=== PATIENT | female | born 1980 | race Two or more races ===

== ENCOUNTER 2020-02-09 10:03 | Outpatient (REF) | payer OTHER, SELFPAY ==
--- NOTE | 2020-02-09 10:08 | XR_ITS ---
EXAMINATION: XR LUMBOSACRAL SPINE CLINICAL INFORMATION: No back pain COMPARISON: None TECHNIQUE: Three views of the lumbosacral spine. FINDINGS: There is maintained lumbar lordosis. Loss of L5-S1 disc height is noted. Rest the disc heights, vertebral heights and alignment is normal. No visible acute fracture, dislocation or subluxation seen. The paravertebral soft tissues are normal. XR/XR lumbar spine 2-3V IMPRESSION: Degenerative disc changes L5-S1 disc level. No visible acute fracture or dislocation seen.
== END 2020-02-09 10:04 | disposition home or self-care (01) ==
LOC: HO.HMGCX 10:03
PROVIDERS: PCP Internal Medicine; Visit Provider Nurse Practitioner Family
DX: M54.5 Low back pain (principal)
CPT/HCPCS: 72100

== ENCOUNTER → 2020-04-12 14:58 | Outpatient (BNVA) | payer OTHER, SELFPAY | PROVIDERS: Visit Provider Internal Medicine Cardiovascular Disease | DX: I49.3 Ventricular premature depolarization (principal); R00.2 Palpitations | CPT/HCPCS: 93005; 99212 ==

== ENCOUNTER 2020-06-25 08:18 | Outpatient (REF) | payer OTHER, SELFPAY ==
[2020-06-25 08:43] LABS: COVID-19 Test Negative (Negative)
== END 2020-06-25 08:19 | disposition home or self-care (01) ==
LOC: HO.EMPCOV 08:18
PROVIDERS: Visit Provider Internal Medicine
DX: Z20.822 Contact with and (suspected) exposure to COVID-19 (principal)
CPT/HCPCS: 36415; 87635; C9803

== ENCOUNTER 2020-12-21 16:26 | Outpatient (REF) | payer OTHER, SELFPAY ==
--- NOTE | ~2020-12-21 | MM_ITS ---
EXAMINATION: MM SCREENING DIGITAL BREAST TOMOSYNTHESIS, BILATERAL CLINICAL INFORMATION: Screening. Asymptomatic. The lifetime risk of breast cancer based on the Tyrer-Cuzick Model is 8%. COMPARISON: Mammography: 08/12/2018, 05/10/2007. TECHNIQUE: Digital breast tomosynthesis is performed in both the craniocaudal and mediolateral oblique views along with computer-aided detection (CAD). Synthesized 2D images are generated from the tomosynthesis. FINDINGS: The breasts are heterogeneously dense, which may obscure small masses (ACR BI-RADS breast composition Category c). There are no significant masses, abnormal calcifications, or other abnormalities. Parenchymal pattern is similar to prior exam. The axilla and skin contours are unremarkable. MM/MM tomosynthesis screening BI IMPRESSION: No mammographic evidence of malignancy. ASSESSMENT: BI-RADS 1: Negative RECOMMENDATION: Routine annual mammography screening. This patient's information was entered into a reminder system with a target due date for their next mammogram.
== END 2020-12-21 16:27 | disposition home or self-care (01) ==
LOC: HO.MAMMO 16:26
PROVIDERS: Visit Provider Internal Medicine
DX: Z12.31 Encounter for screening mammogram for malignant neoplasm of breast (principal)
CPT/HCPCS: 77063; 77067

== ENCOUNTER 2021-01-13 13:33 | Outpatient (REF) | payer OTHER, SELFPAY ==
[2021-01-16 15:06] LABS: Anti Nuclear Antibody Screen NEGATIVE (NEGATIVE)
[2021-01-21 15:20] LABS: Vitamin D 25-OH, D2 <4 ng/mL; Vitamin D 25-OH, D3 20 ng/mL; Vitamin D 25-OH, Total 20 ng/mL (30-100)
== END 2021-01-13 13:34 | disposition home or self-care (01) ==
LOC: HO.LAB 13:33
PROVIDERS: PCP Internal Medicine; Visit Provider Internal Medicine
DX: E55.9 Vitamin D deficiency, unspecified (principal); M25.50 Pain in unspecified joint
CPT/HCPCS: 36415; 82306; 86038; 86039

== ENCOUNTER → 2021-02-02 15:18 | Outpatient (REF) | payer OTHER, SELFPAY ==
--- NOTE | 2021-02-02 15:27 | ECG_ITS ---
Test Reason : preop Blood Pressure : / mmHG Vent. Rate : 061 BPM Atrial Rate : 061 BPM P-R Int : 118 ms QRS Dur : 088 ms QT Int : 428 ms P-R-T Axes : 057 067 066 degrees QTc Int : 430 ms Normal sinus rhythm Nonspecific ST and T wave abnormality Borderline ECG No previous ECGs available Referred By: Gilda Valenzuela Electronically Signed By:DAVE BERRY
== END ==
LOC: HO.CARD 15:18
PROVIDERS: PCP Internal Medicine; Visit Provider Internal Medicine
DX: Z01.818 Encounter for other preprocedural examination (principal)
CPT/HCPCS: 93005

== ENCOUNTER 2021-02-03 08:44 | Outpatient (REF) | payer OTHER, SELFPAY ==
[2021-02-03 09:05] LABS: MANUAL DIFF FLAG NO
[2021-02-03 09:38] LABS: Basophils Percent Auto 0.5 % (0-2); Eosinophils Absolute Auto 0.2 X10*3/uL (0.0-0.4); Eosinophils Percent Auto 1.9 % (0-4); Hematocrit 40.8 % (37.0-47.0); Hemoglobin 13.7 g/dl (12.0-16.0); Imm Gran Abs Auto 0.02 X10*3/uL (0.00-0.03); Imm Gran Pct Auto 0.2 % (0.0-0.4); Lymphocytes Absolute Auto 2.2 X10*3/uL (1.2-4.9); Lymphocytes Percent Auto 26.1 % (20-40); Mean Corpuscular HGB Conc 33.6 g/dl (31.0-35.0); Mean Corpuscular Hemoglobin 29.5 pg (27.0-33.0); Mean Corpuscular Volume 87.9 fL (80.0-98.0); Mean Platelet Volume 10.6 fL (9.4-12.3); Monocytes Absolute Auto 0.5 X10*3/uL (0.1-1.2); Neutrophils Absolute Auto 5.6 x10*3/uL (2.0-8.3); Neutrophils Percent Auto 65.3 % (45-73); Platelet Count 275 X10*3/uL (160-400); Red Blood Count 4.64 X10*6/uL (4.20-5.50); Red Cell Distribution Width 12.3 % (11.0-16.0); White Blood Count 8.5 X10*3/uL (4.8-10.8)
[2021-02-03 10:00] LABS: Alanine Aminotransferase 15 U/L (0-31); Albumin Level 4.1 g/dL (3.5-5.0); Alkaline Phosphatase 66 U/L (39-117); Anion Gap 11 (12-20); Aspartate Amino Transferase 17 U/L (5-31); Bilirubin Total 1.1 mg/dL (0.0-1.0); Blood Urea Nitrogen 11 mg/dL (9-16); Calcium 9.2 mg/dL (8.4-10.2); Carbon Dioxide 28 mmol/L (22-29); Chloride 104 mmol/L (96-108); Estimated Glomerular Filt Rate > 60; Glucose Fasting 122 mg/dL (60-99); Potassium 4.1 mmol/L (3.3-5.1); Sodium 139 mmol/L (135-145); Total Protein 7.1 g/dL (6.5-8.0)
== END 2021-02-03 08:45 | disposition home or self-care (01) ==
LOC: HO.LAB 08:44
PROVIDERS: PCP Internal Medicine; Visit Provider Internal Medicine
DX: Z01.818 Encounter for other preprocedural examination (principal); D64.9 Anemia, unspecified
CPT/HCPCS: 36415; 80053; 85025

== ENCOUNTER 2021-02-04 08:27 | Outpatient (REF) | payer OTHER, SELFPAY ==
[2021-02-04 10:10] LABS: Estimated Average Glucose 103 mg/dL; Hemoglobin A1c % 5.2 %
[2021-02-04 10:31] LABS: Glucose Fasting 118 mg/dL (60-99)
== END 2021-02-04 08:28 | disposition home or self-care (01) ==
LOC: HO.LAB 08:27
PROVIDERS: PCP Internal Medicine; Visit Provider Urology
DX: M25.50 Pain in unspecified joint (principal)
CPT/HCPCS: 36415; 82947; 83036

== ENCOUNTER 2021-06-01 08:41 | Outpatient (REF) | payer OTHER, SELFPAY ==
[2021-06-01 10:46] LABS: Glucose Fasting 105 mg/dL (60-99)
== END 2021-06-01 08:42 | disposition home or self-care (01) ==
LOC: HO.10HDL 08:41
PROVIDERS: Visit Provider Internal Medicine
DX: R73.02 Impaired glucose tolerance (oral) (principal)
CPT/HCPCS: 36415; 82947

== ENCOUNTER → 2021-07-20 14:09 | Outpatient (BNVA) | payer OTHER, SELFPAY | PROVIDERS: PCP Internal Medicine; Visit Provider Urology | DX: R82.81 Pyuria (principal) ==

== ENCOUNTER 2021-08-09 14:11 | Outpatient (AMB) | payer OTHER, SELFPAY ==
--- NOTE | 2021-08-09 14:22 | A.OFFVIS_ITS ---
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 She is a patient of Dr. Valenzuela. She seen for the following urologic conditions - persistent pyuria completed low dose antibiotics based on microgen with multiple species Pyuria Found on prior urinary dipstick Urinary dipstick today shows leuk esterase 3+ blood, negative nitrite, trace glucose Has previously had occasional bladder spasm Plan on Microgen DNA test May benefit from 3 months of low-dose suppression based on Microgen result PFSH Medical History Bladder spasms Impaired glucose tolerance Physical exam Polyarthralgia Pre-op evaluation PVCs (premature ventricular contractions) Rash Surgical History H/O oral surgery History of History of lumpectomy of left breast Family History Mother Diabetes Pulmonary embolism Father Substance use disorder Social History Housing: House Alcohol intake: current Alcohol intake frequency: holidays/special occasions only Alcohol type: beer Patient Tobacco Use Status: Never used Tobacco e-Cigarette/Vaping Use: Never Used Second Hand Smoke Exposure: No service: No Current occupational status: employed Current occupational exposures/hazards: No Cognitive needs: No Hearing needs: No Vision needs: No Review of Systems Const Denies chills and Denies fever(s) Card Reports no additional complaints and Denies syncope Resp Denies cough GI Denies abdominal pain and Denies heartburn Reports as per HPI and Denies change in libido Neuro Denies syncope Psych Denies change in libido Endo Denies change in libido Physical Exam Const General: cooperative, healthy appearing, comfortable and no acute distress Orientation/consciousness: patient oriented x3 HEENT Face and sinus: Yes normal facial exam Mouth: moist mucous membranes Neck Neck: Yes normal visual inspection, Yes full ROM and Yes trachea midline Chest Chest palpation & inspection: normal inspection of the chest Resp Effort & Inspection: normal respiratory effort, able to speak in complete sentences and no respiratory distress GI Inspection: Yes normal to inspection Back/Spine/Pelvis Cervical Spine: normal cervical lordosis Thoracic/Lumbar Spine: thoracic and lumbar spine normal to inspection Skin General skin exam: no rashes or lesions noted Neuro General: patient oriented x3, gait normal, tone normal and moves all extremities Extrem General: Yes normal to inspection and Yes capillary refill normal Results AMB Urinalysis, Automated UA Leukoctes 0 [place]/uL Last Edit by Isai Almeida on 08/09/21 14:24 UA Nitrite Negative Last Edit by Isai Almeida on 08/09/21 14:24 UA Urobilinogen 0.2 mg/dL Last Edit by Isai Almeida on 08/09/21 14:24 UA Protein 0 mg/dL Last Edit by Isai Almeida on 08/09/21 14:24 UA pH 6.5 Last Edit by Isai Almeida on 08/09/21 14:24 UA Blood 0 Myke/uL Last Edit by Isai Almeida on 08/09/21 14:24 UA Specific [place] 1.015 Last Edit by Isai Almeida on 08/09/21 14:24 UA Ketone Negative Last Edit by Isai Almeida on 08/09/21 14:24 UA Bilirubin 0 mg/dL Last Edit by Isai Almeida on 08/09/21 14:24 UA Glucose 100 mg/dL Last Edit by Isai Almeida on 08/09/21 14:24 Results Reviewed Results Reviewed: Laboratory Last Values Urine pH (Auto) 6.5 08/09/21 14:23 Specific [place] (Auto) 1.015 08/09/21 14:23 Urine Protein (Auto) 0 mg/dL 08/09/21 14:23 Glucose (UA)(Auto) 100 mg/dL 08/09/21 14:23 Urine Ketones (Auto) Negative 08/09/21 14:23 Urine Blood (Auto) 0 Myke/uL 08/09/21 14:23 Urine Nitrite (Auto) Negative 08/09/21 14:23 Urine Bilirubin (Auto) 0 mg/dL 08/09/21 14:23 Urine Urobilinogen (Auto) 0.2 mg/dL 08/09/21 14:23 Leukocyte Esterase (Auto) 0 [place]/uL 08/09/21 14:23 Assessment & Plan Assessment & Plan (1) Chronic UTI (urinary tract infection): Code(s): N39.0 - Urinary tract infection, site not specified Plan will call if persistent Orders: Orders AMB Urinalysis Automated 08/09/21 Z13.9 - Encounter for screening, unspecified Patient Instructions: Imaging studies, laboratory and physical exam results were discussed and reviewed in detail. No major barriers to patient understanding were identified. An opportunity to ask questions regarding the treatment plan was provided. All questions were answered. The patient expressed understanding and agreement with the above treatment plan. The patient is aware they should contact our office by phone for worsening of their current condition or the appearance of new urologic symptoms. Compliance is encouraged with any medications and followup testing that is ordered. It is a privilege to participate in the urologic care of your patient. If you have any questions or concerns regarding treatment for the above conditions, or other urologic issues, please do not hesitate to contact me. The office telephone contact is [phone]. This note is constructed using voice recognition software. While every effort has been made to ensure accuracy medical staff services coordinator errors may have been included. Yours sincerely, Dr Arden Fuentes MD, [facility] - Urology Providers of Expert, Compassionate Care for the Genitourinary System Coding Level of Care Code Est Pt Level 3 (16889) Diagnoses Chronic UTI (urinary tract infection) N39.0
== END 2021-08-09 16:23 | disposition home or self-care (01) ==
LOC: HO.HUSH 14:11
PROVIDERS: PCP Internal Medicine; Visit Provider Urology
DX: N39.0 Urinary tract infection, site not specified (principal)
CPT/HCPCS: 99499

== ENCOUNTER → 2021-08-09 14:11 | Outpatient (BNVA) | payer OTHER, SELFPAY | PROVIDERS: PCP Internal Medicine; Visit Provider Urology | DX: Z13.89 Encounter for screening for other disorder (principal) ==

== ENCOUNTER 2021-09-26 08:45 | Outpatient (REF) | payer OTHER, SELFPAY ==
[2021-09-26 09:55] LABS: COVID-19 Test Negative (Negative)
== END 2021-09-26 08:46 | disposition home or self-care (01) ==
LOC: HO.LAB 08:45
PROVIDERS: Visit Provider Internal Medicine
DX: Z20.822 Contact with and (suspected) exposure to COVID-19 (principal)
CPT/HCPCS: 87635; C9803

== ENCOUNTER 2021-10-07 07:32 | Outpatient (REF) | payer OTHER, SELFPAY ==
[2021-10-07 09:12] LABS: Alanine Aminotransferase 14 U/L (0-31); Albumin Level 4.4 g/dL (3.5-5.0); Alkaline Phosphatase 63 U/L (39-117); Anion Gap 14 (12-20); Aspartate Amino Transferase 18 U/L (5-31); Bilirubin Total 0.8 mg/dL (0.0-1.0); Blood Urea Nitrogen 25 mg/dL (9-16); Calcium 9.4 mg/dL (8.4-10.2); Carbon Dioxide 27 mmol/L (22-29); Chloride 104 mmol/L (96-108); Cholesterol 216 mg/dL; Estimated Glomerular Filt Rate 56; Glucose Fasting 116 mg/dL (60-99); HDL Cholesterol 56 mg/dL; LDL Cholesterol Calculated 136 mg/dl; Potassium 4.7 mmol/L (3.3-5.1); Sodium 140 mmol/L (135-145); Total Protein 7.6 g/dL (6.5-8.0); Triglycerides 120 mg/dL
[2021-10-07 09:33] LABS: Vitamin D 25-OH Total 23.5 ng/mL (>30)
== END 2021-10-07 07:33 | disposition home or self-care (01) ==
LOC: HO.LAB 07:32
PROVIDERS: PCP Internal Medicine; Visit Provider Internal Medicine
DX: R73.02 Impaired glucose tolerance (oral) (principal); E55.9 Vitamin D deficiency, unspecified
CPT/HCPCS: 36415; 80053; 80061; 82306

== ENCOUNTER 2022-01-02 15:54 | Outpatient (REF) | payer OTHER, SELFPAY ==
--- NOTE | ~2022-01-02 | MM_ITS ---
EXAMINATION: MM SCREENING DIGITAL BREAST TOMOSYNTHESIS, BILATERAL CLINICAL INFORMATION: Screening. Asymptomatic. The lifetime risk of breast cancer based on the Tyrer-Cuzick Model is 8%. COMPARISON: Mammography: 12/21/2020, 08/12/2018 TECHNIQUE: Digital breast tomosynthesis is performed in both the craniocaudal and mediolateral oblique views along with computer-aided detection (CAD). Synthesized 2D images are generated from the tomosynthesis. FINDINGS: The breasts are heterogeneously dense, which may obscure small masses (ACR BI-RADS breast composition Category c). There are no significant masses, abnormal calcifications, or other abnormalities. No developing density or architectural abnormality. No significant changes. The axilla and skin contours are unremarkable. MM/MM tomosynthesis screening BI IMPRESSION: No mammographic evidence of malignancy. ASSESSMENT: BI-RADS 1: Negative RECOMMENDATION: Routine annual mammography screening. This patient's information was entered into a reminder system with a target due date for their next mammogram.
== END 2022-01-02 15:55 | disposition home or self-care (01) ==
LOC: HO.MAMMO 15:54
PROVIDERS: PCP Internal Medicine; Visit Provider Internal Medicine
DX: Z12.31 Encounter for screening mammogram for malignant neoplasm of breast (principal)
CPT/HCPCS: 77063; 77067

== ENCOUNTER 2022-01-16 08:27 | Outpatient (REF) | payer OTHER, SELFPAY ==
[2022-01-16 11:13] LABS: Alanine Aminotransferase 14 U/L (0-31); Alkaline Phosphatase 67 U/L (39-117); Anion Gap 15 (12-20); Aspartate Amino Transferase 17 U/L (5-31); Bilirubin Total 0.5 mg/dL (0.0-1.0); Blood Urea Nitrogen 15 mg/dL (9-16); Calcium 9.2 mg/dL (8.4-10.2); Carbon Dioxide 24 mmol/L (22-29); Chloride 105 mmol/L (96-108); Estimated Glomerular Filt Rate > 60; Glucose Fasting 112 mg/dL (60-99); Potassium 4.4 mmol/L (3.3-5.1); Sodium 140 mmol/L (135-145); Total Protein 7.1 g/dL (6.5-8.0)
[2022-01-17 10:21] LABS: Rubeola IgG (Measles) >300.00 AU/mL
[2022-01-17 11:57] LABS: Rubella IgG Antibody 1.71 Index
[2022-01-18 15:57] LABS: TS Negative Control Passed; TS Panel A 0; TS Panel B 0; TS Positive Control Passed; TSpotTB Negative (Negative)
== END 2022-01-16 08:28 | disposition home or self-care (01) ==
LOC: HO.10HDL 08:27
PROVIDERS: Visit Provider Internal Medicine
DX: Z01.84 Encounter for antibody response examination (principal); R73.02 Impaired glucose tolerance (oral); Z11.1 Encounter for screening for respiratory tuberculosis
CPT/HCPCS: 36415; 80053; 86481; 86735; 86762; 86765

== ENCOUNTER → 2022-03-27 14:54 | Outpatient (BNVA) | payer OTHER, SELFPAY | PROVIDERS: PCP Internal Medicine; Referring Provider Internal Medicine; Visit Provider Internal Medicine Cardiovascular Disease | DX: I49.3 Ventricular premature depolarization (principal) | CPT/HCPCS: 93005 ==

== ENCOUNTER 2022-04-26 11:00 | Outpatient (REF) | payer OTHER, SELFPAY ==
--- NOTE | ~2022-04-26 | XR_ITS ---
EXAMINATION: XR HAND, RIGHT CLINICAL INFORMATION: Right hand pain COMPARISON: None TECHNIQUE: PA, lateral, and oblique views of the right hand. FINDINGS: The bones and soft tissues are normal. No fracture. Alignment is anatomic. Joint spaces are maintained. No erosions or soft tissue calcifications. XR/XR hand RT 2V IMPRESSION: Normal right hand.
== END 2022-04-26 11:01 | disposition home or self-care (01) ==
LOC: HO.XRAY 11:00
PROVIDERS: PCP Internal Medicine; Visit Provider Internal Medicine
DX: M79.641 Pain in right hand (principal)
CPT/HCPCS: 73120

== ENCOUNTER 2022-05-26 16:29 | Outpatient (REF) | payer OTHER, SELFPAY ==
--- NOTE | ~2022-05-26 | XR_ITS ---
EXAMINATION: XR SHOULDER, RIGHT CLINICAL INFORMATION: Pain. COMPARISON: None available. TECHNIQUE: AP external rotation, Grashey, scapular Y, and axillary views of the right shoulder. FINDINGS: The bones and soft tissues are normal. No fracture. Glenohumeral and acromioclavicular alignment is anatomic with normal joint space. No abnormal soft tissue calcifications. XR/XR shoulder LT min 2V IMPRESSION: Normal right shoulder. EXAMINATION: XR SHOULDER, LEFT CLINICAL INFORMATION: Pain. COMPARISON: None available. TECHNIQUE: AP external rotation, Grashey, scapular Y, and axillary views of the left shoulder. FINDINGS: The bones and soft tissues are normal. No fracture. Glenohumeral and acromioclavicular alignment is anatomic with normal joint space. No abnormal soft tissue calcifications. IMPRESSION: Normal left shoulder.
--- NOTE | ~2022-05-26 | XR_ITS ---
EXAMINATION: XR CERVICAL SPINE CLINICAL INFORMATION: Cervicalgia. COMPARISON: Radiographs dated 10/12/2010. TECHNIQUE: Frontal, odontoid, bilateral oblique and lateral views of the cervical spine were obtained. FINDINGS: The vertebral alignment is normal. No intrinsic bony abnormality. The disc heights and neural foramina are well maintained. The endplates and posterior elements are normal. No fracture or subluxation. The surrounding prevertebral soft tissues are unremarkable. Small bilateral cervical ribs are redemonstrated. XR/XR cervical spine 5V IMPRESSION: Unremarkable examination.
--- NOTE | ~2022-05-26 | XR_ITS ---
EXAMINATION: XR SHOULDER, RIGHT CLINICAL INFORMATION: Pain. COMPARISON: None available. TECHNIQUE: AP external rotation, Grashey, scapular Y, and axillary views of the right shoulder. FINDINGS: The bones and soft tissues are normal. No fracture. Glenohumeral and acromioclavicular alignment is anatomic with normal joint space. No abnormal soft tissue calcifications. XR/XR shoulder RT min 2V IMPRESSION: Normal right shoulder. EXAMINATION: XR SHOULDER, LEFT CLINICAL INFORMATION: Pain. COMPARISON: None available. TECHNIQUE: AP external rotation, Grashey, scapular Y, and axillary views of the left shoulder. FINDINGS: The bones and soft tissues are normal. No fracture. Glenohumeral and acromioclavicular alignment is anatomic with normal joint space. No abnormal soft tissue calcifications. IMPRESSION: Normal left shoulder.
== END 2022-05-26 16:30 | disposition home or self-care (01) ==
LOC: HO.XRAY 16:29
PROVIDERS: Visit Provider Nurse Practitioner Adult Health
DX: M25.511 Pain in right shoulder (principal); M25.512 Pain in left shoulder; M54.2 Cervicalgia; M79.12 Myalgia of auxiliary muscles, head and neck
CPT/HCPCS: 72050; 73030

== ENCOUNTER 2022-10-09 09:01 | Outpatient (REF) | payer OTHER, SELFPAY ==
--- NOTE | ~2022-10-09 | MR_ITS ---
EXAMINATION: MR BRAIN WITHOUT CONTRAST CLINICAL INFORMATION: Headaches. COMPARISON: Prior brain MRI dated 04/06/2017. TECHNIQUE: Multiplanar, multisequence imaging of the brain was performed without contrast. FINDINGS: No diffusion abnormalities are identified to suggest an acute infarct. The ventricles are normal in size. No mass effect or midline shift is seen. Minimal nonspecific white matter signal changes are stable. No extra-axial fluid collections are seen. The brainstem is normal. There is a small chronic infarct again visible in the right inferolateral cerebellar hemisphere. The gradient refocused acquisition is normal. The craniovertebral junction, marrow signal, and midline structures are normal. The major intracranial flow voids at the level of the north fork of [place] are preserved. The dural venous sinus flow voids are maintained. The mastoid air cells are well aerated. There is moderate mucosal thickening in the anterolateral left sphenoid sinus. Mild mucosal thickening noted along the floors of the maxillary sinus cavities. Moderate bilateral ethmoid sinus disease present. There is additional mild mucosal thickening in both frontal sinus cavities. MR/MR head/brain wo con IMPRESSION: Stable minimal nonspecific scattered white matter signal changes. Small chronic right cerebellar infarct. No acute intracranial process. Moderate ethmoid and left sphenoid sinus mucosal disease with milder mucosal thickening elsewhere in the paranasal sinuses.
== END 2022-10-09 09:02 | disposition home or self-care (01) ==
LOC: HO.MRI 09:01
PROVIDERS: PCP Internal Medicine; Visit Provider Internal Medicine
DX: R51.9 Headache, unspecified (principal)
CPT/HCPCS: 70551

== ENCOUNTER 2023-06-04 10:07 | Outpatient (AMB) | payer BC, SELFPAY ==
[2023-06-04 10:10] VITALS: BP 112/70; PULSE 64; O2SAT 98; BMI 24.8
--- NOTE | 2023-06-04 10:10 | A.OFFVIS_ITS ---
Intake Vital Signs 06/04/23 10:10 Height 5 ft 3 in Weight 140 lb BMI 24.8 BP 112/70 Blood Pressure Location Rt brachial Position Sitting Pulse 64 Pulse Source Pulse Oximeter Pulse Oximetry (%) 98 Oxygen Delivery Method Room Air Intake Visit Reasons: [id number] Intake Note: Patient presents for headaches. Patient has migraines at least once a week. Allergies sumatriptan Allergy (Unknown, Verified 06/14/23 14:17) inadequate response SEASONAL ALLERGIES Allergy (Unknown, Uncoded 06/04/23 10:16) UNKNOWN Medication List - Last Reconciled 06/04/23 by Norma Mejia, JALEEL albuterol sulfate 90 mcg/actuation inhalation amoxicillin 500 mg PO BID 7 days cetirizine 10 mg PO DAILY nirmatrelvir-ritonavir 300 mg (150 mg x 2)-100 mg (Paxlovid) 3 ea PO PER PKG DIR 5 days pregabalin 150 mg PO TID propranolol ER 80 mg PO DAILY rizatriptan 10 mg PO Q2-4H PRN 30 days zolpidem 10 mg PO BEDTIME PRN HPI HPI Comments History of Present Illness Details Right-handed 42-yr-old female presents for new pt evaluation of headache disorder. Pt comes to establish care for her headaches, as her migraines are becoming more frequent. She has never seen neurology before. PMH is significant for: Anemia, arthritis, asthma, GERD, constipation, sleep problems, thyroid nodule. Sickle cell disease carrier without history of blood clot. Pertinent denials include: Denies history of seizures, hypertension, high cholesterol. Headache questionnaire: Previous work-up: 10/09/22, MR/MR head/brain wo con IMPRESSION: -Stable minimal nonspecific scattered wh ite matter signal changes. Small chronic right cerebellar infarct. No acute intracranial process. -Moderate ethmoid and left sphenoid sinu s mucosal disease with milder mucosal thickening elsewhere in the paranasal sinuses. Typical headache characteristics: Prodrome symptoms? none Aura? Left or right eye but then in both eyes. Sees a dot, transforms into a C shape, becomes zagged, and begins to move, and loses her bilateral peripheral vision. This usually lasts 20 minutes- if longer will be a/w a severe JO. This a/w nausea and sickness. When a/w headache the headache is more severe. The aura w/o the headache occurs once every other week or so. Pain intensity? Mod-Severe Location, quality, characteristics? Throbbing pain in crown of head. Stabbing pa in behind moses eyes. Associated symptoms? Photophobia, phonophobia, nausea, not right in space dizziness, difficulty concentrating, word finding difficulties, fatigue, , Focal weakness, Parethesias, Autonomic s/s? right or left watery eye- also has dry eye. Occasional slurred speech. Once (yrs ago)- right facial droop and numbness. Postdrome? Lingering symptoms. Triggers? Stress, skipping meals. Once on a plane- as it descended, caused a severe right sided headache. Any positional, valsalva, exertional, sexual activity triggers? Bending over exacerbates JO. Menstrual triggers? Has mild headaches a/w menses- menses is not regular. Time of day? No specific time of day Duration and Frequency? 1 attack per week, lasting 2 days. How does headache impact your life? Usually able to work through it- her office has a quite room. Rarely needs to leave work. 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 Lifestyle considerations: Sleep problems- Uses ambien for sleep- managed by [facility]. Denies snoring. Substance use: 1 cup of coffee in am, social alcohol Exercise: walks w/ her dogs daily. Current acute medication use/interventions: Rizatriptan w/ Ibuprofen- not always effective and makes her tiredness Current preventative medication use: Propranolol ER 80mg- used for PVCs. Non-pharmacological interventions: Applies heat. Does not tolerate cold tx. . Family history of migraine or other headache disorder? Mother [facility] Medical History (Updated 06/14/23 @ 15:02 by Gilda Valenzuela MD) Herpes zoster Bladder spasms Physical exam Rash Impaired glucose tolerance Pre-op evaluation Polyarthralgia PVCs (premature ventricular contractions) Surgical History H/O oral surgery History of lumpectomy of left breast History of Family History Mother Diabetes Pulmonary embolism Father Substance use disorder Social History Housing: House Alcohol intake: current Alcohol intake frequency: holidays/special occasions only Alcohol type: beer Patient Tobacco Use Status: Never used Tobacco e-Cigarette/Vaping Use: Never Used Second Hand Smoke Exposure: No service: No Current occupational status: employed Current occupational exposures/hazards: No Cognitive needs: No Hearing needs: No Vision needs: Yes Physical Exam Vital Signs: Last Vital Signs Pulse 64 06/04/23 10:10 BP 112/70 06/04/23 10:10 Pulse Ox 98 06/04/23 10:10 Oxygen Delivery Method Room Air 06/04/23 10:10 BMI result Body Mass Index 24.8 Const Orientation/consciousness: patient oriented x3 HEENT Other: No palpable scalp tenderness. Head: Yes normocephalic Resp Effort & Inspection: normal respiratory effort and able to speak in complete sentences Neuro General: patient oriented x3 Cranial nerves: Yes CN's II-XII intact bilaterally Cognition (Neuro): normal cognition Gait exam (Neuro): Normal gait present Motor exam (neuro): 5/5 motor strength present throughout Deep tendon reflexes (DTR's): Right triceps reflex intensity grade: 2+, Left triceps reflex intensity grade: 2+, Rt Biceps (C5, C6): 2+, Left biceps reflex intensity grade: 2+, Right brachioradialis reflex intensity grade: 2+, Left brachioradialis reflex intensity grade: 2+, Right patellar reflex intensity grade: 2+ and Left patellar reflex intensity grade: 2+ Coordination: [id number] test normal, tandem gait normal and Romberg test negative Pupils: Normal pupillary reactivity/response: bilateral Psych Appearance: grossly normal Mental Status: mental status grossly normal Speech and movement: Normal speech and movement present Affect: normal affect Attitude: cooperative Thought process: Normal thought process present Assessment & Plan Assessment & Plan (1) Cerebellar stroke: Comment: Right Code(s): I63.9 - Cerebral infarction, unspecified (2) Migraine with aura: Code(s): G43.109 - Migraine with aura, not intractable, without status migrainosus (3) Palpitations: Code(s): R00.2 - Palpitations (4) PVCs (premature ventricular contractions): Code(s): I49.3 - Ventricular premature depolarization (5) Sleep difficulties: Code(s): G47.9 - Sleep disorder, unspecified Plan For history of cerebellar infarcts seen on brain MRI: Start aspirin 81 mg q.h.s. Pt advised to undergo: HST to assess for sleep apnea. CTA head and neck. Lab workup for headache and for underlying etiology of h/o cerebellar infarct, as well as headache and fatigue s/s. For overall headache management: Optimize good self-care, including but not limited to maintaining a healthy diet, adequate fluid intake, adequate sleep, and engaging in regular physical activity. For headache triggers: Track headaches, especially after any treatment regimen changes. Migraine [employer] is one of many headache tracking apps. For acute headache treatment: Discussed importance of taking acute medications at the first sign of headache. Discontinue rizatriptan due to history of cerebellar infarct. Trial Nurtec ODT 75 mg q.d. p.r.n. Reviewed potential adverse effects of gepants, including but not limited to fatigue, nausea, dry mouth, constipation. Previous acute migraine medication trials: Rizatriptan w/ Ibuprofen- not always effective and makes her tiredness Acute migraine medication contraindications: All triptans due to history of cerebellar infarct For headache prevention medication: Discussed that preventative medications should be taken routinely as prescribed for best effect, it may take several weeks for full effect to take effect. Continue propranolol ER 80 mg q.d.- used for PVCs. Continue Pregabalin for fibromyaligia. Start Ajovy 225 mg subcu q.month. Reviewed potential adverse effects of Ajovy, including but not limited to injection site reactions. Previous migraine prevention medication trials: Amitriptyline- ineffective and caused GI upset. Gabapentin and Duloxetine- ineffective for JO or fibromyalgia- used for fibromyalgia. Migraine prevention medication contraindications: None at this time Pt to follow-up in 2-3 months or sooner prn. Orders: Orders RT home sleep study 06/04/23 I63.9 - Cerebral infarction, unspecified, I49.3 - Ventricular premature depolarization, R06.83 - Snoring, G47.9 - Sleep disorder, unspecified, R53.83 - Other fatigue Complete Blood Count Auto Diff 06/05/23 I63.9 - Cerebral infarction, unspecified, G43.109 - Migraine with aura, not intractable, without status migrainosus, R00.2 - Palpitations, I49.3 - Ventricular premature depolarization, R73.02 - Impaired glucose tolerance (oral), M25.50 - Pain in unspecified joint Erythrocyte Sedimentation Rate 06/05/23 I63.9 - Cerebral infarction, unspecified, G43.109 - Migraine with aura, not intractable, without status migrainosus, R00.2 - Palpitations, I49.3 - Ventricular premature depolarization, R73.02 - Impaired glucose tolerance (oral), M25.50 - Pain in unspecified joint TSH reflex Free T4 06/05/23 I63.9 - Cerebral infarction, unspecified, G43.109 - Migraine with aura, not intractable, without status migrainosus, R00.2 - Palpitations, I49.3 - Ventricular premature depolarization, R73.02 - Impaired glucose tolerance (oral), M25.50 - Pain in unspecified joint IRON PROFILE 06/05/23 I63.9 - Cerebral infarction, unspecified, G43.109 - Migraine with aura, not intractable, without status migrainosus, R00.2 - Palpitations, I49.3 - Ventricular premature depolarization, R73.02 - Impaired glucose tolerance (oral), M25.50 - Pain in unspecified joint GILDA Reflex Titer and Pattern 06/05/23 I63.9 - Cerebral infarction, unspecified, G43.109 - Migraine with aura, not intractable, without status migrainosus, R00.2 - Palpitations, I49.3 - Ventricular premature depolarization, R73.02 - Impaired glucose tolerance (oral), M25.50 - Pain in unspecified joint CT angio head neck 06/04/23 I63.9 - Cerebral infarction, unspecified, G43.109 - Migraine with aura, not intractable, without status migrainosus, R00.2 - Palpitations, I49.3 - Ventricular premature depolarization Comprehensive Met. Panel 06/05/23 I63.9 - Cerebral infarction, unspecified, G43.109 - Migraine with aura, not intractable, without status migrainosus, R00.2 - Palpitations, I49.3 - Ventricular premature depolarization, R73.02 - Impaired glucose tolerance (oral), M25.50 - Pain in unspecified joint CRP High Sensitivity 06/05/23 I63.9 - Cerebral infarction, unspecified, G43.109 - Migraine with aura, not intractable, without status migrainosus, R00.2 - Palpitations, I49.3 - Ventricular premature depolarization, R73.02 - Impaired glucose tolerance (oral), M25.50 - Pain in unspecified joint Hemoglobin A1c 06/05/23 I63.9 - Cerebral infarction, unspecified, G43.109 - Migraine with aura, not intractable, without status migrainosus, R00.2 - Palpitations, I49.3 - Ventricular premature depolarization, R73.02 - Impaired glucose tolerance (oral), M25.50 - Pain in unspecified joint Ferritin 06/05/23 I63.9 - Cerebral infarction, unspecified, G43.109 - Migraine with aura, not intractable, without status migrainosus, R00.2 - Palpitations, I49.3 - Ventricular premature depolarization, R73.02 - Impaired glucose tolerance (oral), M25.50 - Pain in unspecified joint Rheumatoid Factor 06/05/23 I63.9 - Cerebral infarction, unspecified, G43.109 - Migraine with aura, not intractable, without status migrainosus, R00.2 - Palpitations, I49.3 - Ventricular premature depolarization, R73.02 - Impaired glucose tolerance (oral), M25.50 - Pain in unspecified joint Methylmalonic Acid 06/05/23 I63.9 - Cerebral infarction, unspecified, G43.109 - Migraine with aura, not intractable, without status migrainosus, R00.2 - Palpitations, I49.3 - Ventricular premature depolarization, R73.02 - Impaired glucose tolerance (oral), M25.50 - Pain in unspecified joint Medications: New fremanezumab-vfrm (Ajovy) administer 225mg sc q month 225 mg (1.5 mL) subcut ONCE 1.5 mL 6RF 30 days rimegepant (Nurtec ODT) 75 mg PO ONCE PRN 16 tabs 3RF migraine headache 30 days MDD 1 tab aspirin bedtime 81 mg PO DAILY 30 tabs 6RF 30 days Coding Level of Care Code New Pt Level 4 (29497) Diagnoses Cerebellar stroke I63.9 Migraine with aura G43.109 Palpitations R00.2 PVCs (premature ventricular contractions) I49.3 Sleep difficulties G47.9
== END 2023-06-04 11:26 | disposition home or self-care (01) ==
PROVIDERS: PCP Internal Medicine; Referring Provider Internal Medicine; Visit Provider Nurse Practitioner Family
DX: I69.398 Other sequelae of cerebral infarction (principal); G43.109 Migraine with aura, not intractable, without status migrainosus; R00.2 Palpitations; I49.3 Ventricular premature depolarization; G47.9 Sleep disorder, unspecified
CPT/HCPCS: 99204

== ENCOUNTER → 2023-06-04 10:07 | Outpatient (BNVA) | payer BC, SELFPAY | PROVIDERS: PCP Internal Medicine; Visit Provider Nurse Practitioner Family ==

== ENCOUNTER 2023-06-05 07:58 | Outpatient (REF) | payer BC, SELFPAY ==
[2023-06-05 08:44] LABS: Imm Gran Abs Auto 0.01 X10*3/uL (0.00-0.03); Imm Gran Pct Auto 0.2 % (0.0-0.4); Monocytes Absolute Auto 0.4 X10*3/uL (0.1-1.2)
[2023-06-05 08:46] LABS: Basophils Percent Auto 0.5 % (0-2); Eosinophils Absolute Auto 0.3 X10*3/uL (0.0-0.4); Eosinophils Percent Auto 4.2 % (0-4); Hematocrit 42.9 % (37.0-47.0); Hemoglobin 14.4 g/dl (12.0-16.0); Lymphocytes Percent Auto 32.6 % (20-40); Mean Corpuscular HGB Conc 33.6 g/dl (31.0-35.0); Mean Corpuscular Hemoglobin 29.7 pg (27.0-33.0); Mean Corpuscular Volume 88.5 fL (80.0-98.0); Mean Platelet Volume 11.5 fL (9.4-12.3); Monocytes Percent Auto 6.7 % (2-11); Neutrophils Absolute Auto 3.5 x10*3/uL (2.0-8.3); Neutrophils Percent Auto 55.8 % (45-73); Platelet Count 243 X10*3/uL (160-400); Red Blood Count 4.85 X10*6/uL (4.20-5.50); Red Cell Distribution Width 12.6 % (11.0-16.0); White Blood Count 6.3 X10*3/uL (4.8-10.8)
[2023-06-05 08:49] LABS: Estimated Average Glucose 103 mg/dL; Hemoglobin A1c % 5.2 % (<6.0)
[2023-06-05 09:06] LABS: Rheumatoid Factor < 13.0 IU/mL (<15.0)
[2023-06-05 09:13] LABS: Erythrocyte Sedimentation Rate 2 MM/HR (0-20)
[2023-06-05 09:17] LABS: Alanine Aminotransferase 13 U/L (0-31); Alkaline Phosphatase 62 U/L (39-117); Anion Gap 10 (12-20); Aspartate Amino Transferase 17 U/L (5-31); Bilirubin Total 0.6 mg/dL (0.0-1.0); Blood Urea Nitrogen 9 mg/dL (9-16); Calcium 9.2 mg/dL (8.4-10.2); Carbon Dioxide 28 mmol/L (22-29); Chloride 108 mmol/L (96-108); Estimated Glomerular Filt Rate > 60; Glucose Random 130 mg/dL (60-115); Iron 101 mcg/dL (30-160); Percent Iron Saturation 39 % (15-50); Potassium 4.3 mmol/L (3.3-5.1); Sodium 142 mmol/L (135-145); Total Iron Binding Capacity 260 mcg/dL (228-428); Total Protein 7.3 g/dL (6.5-8.0); Unsaturated Iron Binding 159 ug/dL
[2023-06-05 09:39] LABS: TSH reflex Free T4 0.71 uIU/mL (0.32-4.0)
[2023-06-05 10:35] LABS: Ferritin 55 ng/mL (10-250)
[2023-06-06 17:29] LABS: CRP High Sensitivity 0.9 mg/L
[2023-06-07 12:53] LABS: Anti Nuclear Antibody Screen NEGATIVE (NEGATIVE)
[2023-06-09 08:28] LABS: Methylmalonic Acid 127 nmol/L (87-318)
== END 2023-06-05 07:59 | disposition home or self-care (01) ==
LOC: HO.LAB 07:58
PROVIDERS: PCP Internal Medicine; Visit Provider Nurse Practitioner Family
DX: I63.9 Cerebral infarction, unspecified (principal); G43.109 Migraine with aura, not intractable, without status migrainosus; R00.2 Palpitations; I49.3 Ventricular premature depolarization; R73.02 Impaired glucose tolerance (oral); M25.50 Pain in unspecified joint
CPT/HCPCS: 36415; 80053; 82728; 83036; 83540; 83921; 84443; 85025; 85652; 86038; 86141; 86431

== ENCOUNTER 2023-06-14 14:09 | Outpatient (AMB) | payer BC, SELFPAY ==
[2023-06-14 14:16] VITALS: BP 112/80; BMI 25.2
--- NOTE | 2023-06-14 14:16 | MHC.PC.OV ---
Vital Signs 06/14/23 14:16 Height 5 ft 3 in Weight 142 lb BMI 25.2 BP 112/80 Blood Pressure Location Lt brachial Position Sitting Intake Visit Reasons: pe Intake Note: Patient here for a physical exam Department Director Required: No Accompanied by: Self / Same As Patient Allergies sumatriptan Allergy (Unknown, Verified 06/14/23 14:17) inadequate response SEASONAL ALLERGIES Allergy (Unknown, Uncoded 06/04/23 10:16) UNKNOWN Medication List - Last Reconciled 06/14/23 by Gilda Valenzuela MD albuterol sulfate 90 mcg/actuation inhalation aspirin 81 mg PO DAILY 30 days cetirizine 10 mg PO DAILY fremanezumab-vfrm (Ajovy) 225 mg (1.5 mL) subcut ONCE 30 days pregabalin 150 mg PO TID propranolol ER 80 mg PO DAILY rimegepant (Nurtec ODT) 75 mg PO ONCE PRN 30 days MDD 1 tab zolpidem 10 mg PO BEDTIME PRN Tobacco use date assessed: 06/14/23 Dental Screening Dental Screen Date: 06/14/23 Did you have a dental visit in the last 12 months?: No Did you have a dental problem in the last 6 months where you did not have access to dental care?: No Was dental information given to patient?: Patient has dentist HPI HPI Comments History of Present Illness Details This is a 42-year-old female with mild cerebellar stroke with no residual deficit that comes for her physical exam. No acute complaints. Last mammogram was 2021. Last Pap smear was 2017. No chest pain or shortness of breath. On aspirin for secondary prophylaxis of stroke. Follows with Neurology. [facility] Medical History (Updated 06/14/23 @ 15:02 by Gilda Valenzuela MD) Herpes zoster Bladder spasms Physical exam Rash Impaired glucose tolerance Pre-op evaluation Polyarthralgia PVCs (premature ventricular contractions) Surgical History H/O oral surgery History of lumpectomy of left breast History of Family History Mother Diabetes Pulmonary embolism Father Substance use disorder Social History Housing: House Alcohol intake: current Alcohol intake frequency: holidays/special occasions only Alcohol type: beer Patient Tobacco Use Status: Never used Tobacco e-Cigarette/Vaping Use: Never Used Second Hand Smoke Exposure: No service: No Current occupational status: employed Current occupational exposures/hazards: No Cognitive needs: No Hearing needs: No Vision needs: Yes Questionnaire PHQ-9 Over the last 2 weeks, how often have you been bothered by any of the following problems? 1. Little interest or pleasure in doing things: not at all 2. Feeling down, depressed, or hopeless: not at all 3. Trouble falling or staying asleep, or sleeping too much: not at all 4. Feeling tired or having little energy: not at all 5. Poor appetite or overeating: not at all 6. Feeling bad about yourself - or that you are a failure or have let yourself or your family down: not at all 7. Trouble concentrating on things, such as reading the newspaper or watching television: not at all 8. Moving or speaking so slowly that other people could have noticed. Or the opposite - being so fidgety or restless that you have been moving around a lot more than usual: not at all 9. Thoughts that you would be better off or of hurting yourself in some way: not at all Total score: 0 Depression Screening Interpretation: Negative Depression Screening Done: Yes 20550 - PHQ-9 Billing: Yes Source: Developed by Drs. Greg Lazo, Celi Pickard, Jason Liu and colleagues, with an educational juan from [employer]. Thrive Questionnaire Date Thrive assessed: 06/14/23 I am a: Patient What is your living situation today?: I have a steady place to live Within the past 12 months, did the food you bought not last and you didn't have the money to get more?: Never true Within the past 12 months, did you worry whether your food would run out before you got money to buy more?: Never true Do you have trouble paying for medicines?: No Do you have trouble getting transportation to medical appointments?: No Do you have trouble paying your heating and electricity bill?: No Do you have trouble taking care of your child, family member or friend?: No Do you have trouble with day-to-day activities such as bathing, preparing meals, shopping, managing finances, etc.?: No Are you currently unemployed and looking for a job?: No Are you interested in more education?: No Please select the resources that you would like help with: None Currently or been in a relationship where the following occur: no concerns reported THRIVE Score: 0 AUDIT C Alcohol Use Questionnaire (AUDIT-C) 1. How often do you have a drink containing alcohol?: Monthly or less 2. How many drinks containing alcohol do you have on a typical day when you are drinking?: 1 or 2 3. How often do you have six or more drinks on one occasion?: Never Total Score: 1 MARÍA-7 AMB Questionnaire MARÍA-7 Date MARÍA - 7 assessed: 06/14/23 Feeling nervous, anxious, or on edge: 0 = Not at all Not being able to stop or control worryin = Not at all Worrying too much about different things: 0 = Not at all Trouble relaxin = Not at all Being so restless that it is hard to sit still: 0 = Not at all Becoming easily annoyed or irritable: 0 = Not at all Feeling afraid as if something awful might happen: 0 = Not at all Total MARÍA-7 score (0-4 normal; 5-9 mild; 10-14 moderate; 15-21 severe): 0 Source: Developed by Drs. Greg Lazo, Celi Pickard, Jason Liu and colleagues, with an educational juan from [employer]. MARÍA-7 Assessment Billing MARÍA-7 Assessment Tool: MARAÍ-7 Assessment 46816 Review of Systems Const All systems reviewed & are unremarkable except as noted in HPI and below Eyes Reports no additional complaints, Denies change in vision and Denies other visual disturbances Card Denies chest pain at rest, Denies chest pain with activity, Denies edema, Denies irregular heart rhythm, Denies claudication, Denies dyspnea, Denies dyspnea on exertion, Denies orthopnea, Denies paroxysmal nocturnal dyspnea and Denies slow heart rate Resp Denies cough, Denies dyspnea and Denies dyspnea on exertion GI Denies abdominal pain, Denies change in bowel habits, Denies excessive flatus, Denies nausea and Denies vomiting Neuro Denies lack of coordination Physical exam (Primary Care) Vital Signs: Last Vital Signs BP 112/80 06/14/23 14:16 BMI result Body Mass Index 25.2 Tobacco/Smoking Status: Tobacco use Status Tobacco use date assessed 06/14/23 06/14/23 14:24 Patient Tobacco Use Status Never used Tobacco 06/14/23 14:24 e-Cigarette/Vaping Use Never Used 06/14/23 14:24 PHQ-9: PHQ-9 Score PHQ-9: Total score 0 06/14/23 14:24 Depression Screening Interpretation: Negative Thrive Assessment: Date of Thrive Assessment Date Thrive assessed 06/14/23 06/14/23 14:24 Currently or been in a relationship where the following occur: no concerns reported Const Orientation/consciousness: patient oriented x3 HENMT Head: Yes normal to inspection, Yes normocephalic and Yes atraumatic Ears: external ears normal Eyes General: appearance normal, both eyes and all related structures Eyelids: Yes eyelids normal Conjunctivae: conjunctivae normal Neck Neck: Yes normal visual inspection and Yes supple Resp Effort & Inspection: normal respiratory effort Auscultation: clear to auscultation bilaterally Cardio Jugular venous distension: no JVD Rate: regular rate Rhythm: regular rhythm Heart sounds: S1 normal heart sound present and S2 normal heart sound present GI Inspection: Yes normal to inspection Palpation (GI): Soft to palpation and nontender Auscultation: normal bowel sounds Skin General skin exam: no rashes or lesions noted Neuro General: patient oriented x3 and no focal motor deficits Extrem General: Yes full ROM Psych Appearance: grossly normal Assessment and Plan Assessment & Plan (1) Physical exam: Code(s): Z00.00 - Encounter for general adult medical examination without abnormal findings Plan: Repeat in a year. (2) Cerebellar stroke: Comment: Right Code(s): I63.9 - Cerebral infarction, unspecified Plan: Continue aspirin for secondary prophylaxis. Follow-up with Neurology. Orders: Orders MM screening mammo BI Today I63.9 - Cerebral infarction, unspecified, Z12.31 - Encounter for screening mammogram for malignant neoplasm of breast Lipid Panel Today E78.5 - Hyperlipidemia, unspecified, I63.9 - Cerebral infarction, unspecified Referrals WILDLIFE PHOTOGRAPHER Referral Z12.4 - Encounter for screening for malignant neoplasm of cervix Coding Level of Care Code Est Pt Prev Care 40-64y(89697) Diagnoses Physical exam Z00.00 Cerebellar stroke I63.9 Additional Codes MARÍA-7 Assessment Billing - MARÍA-7 Assessment Tool: MARÍA-7 Assessment [id number] ([id number]) Time Spent (min) 31
== END 2023-06-14 15:06 | disposition home or self-care (01) ==
PROVIDERS: Visit Provider Internal Medicine
DX: Z00.00 Encounter for general adult medical examination without abnormal findings (principal); I63.9 Cerebral infarction, unspecified
CPT/HCPCS: 99396

== ENCOUNTER 2023-07-16 13:26 | Outpatient (REF) | payer BC, SELFPAY ==
--- NOTE | ~2023-07-16 | MM_ITS ---
EXAMINATION: MM SCREENING DIGITAL BREAST TOMOSYNTHESIS, BILATERAL CLINICAL INFORMATION: Screening. Asymptomatic. The patient reports a history of prior left breast benign excisional biopsy. COMPARISON: Mammography: This study is compared with prior exams dating back to 2019. TECHNIQUE: Digital breast tomosynthesis is performed in both the craniocaudal and mediolateral oblique views along with computer-aided detection (CAD). Synthesized 2D images are generated from the tomosynthesis. FINDINGS: The breasts are heterogeneously dense, which may obscure small masses (ACR BI-RADS breast composition Category c). There are no significant masses, abnormal calcifications, or other abnormalities. MM/MM tomosynthesis screening BI IMPRESSION: No mammographic evidence of malignancy. ASSESSMENT: BI-RADS BI-RADS 1 - Negative RECOMMENDATION: Routine annual mammography screening. 1 year F/U This examination should not preclude the clinical evaluation of a suspicious palpable abnormality. This patient's information was entered into a reminder system with a target due date for their next mammogram.
== END 2023-07-16 13:27 | disposition home or self-care (01) ==
LOC: HO.MAMMO 13:26
PROVIDERS: PCP Internal Medicine; Visit Provider Internal Medicine
DX: Z12.31 Encounter for screening mammogram for malignant neoplasm of breast (principal)
CPT/HCPCS: 77063; 77067

== ENCOUNTER → 2023-07-16 13:30 | Outpatient (BNV) | payer BC, SELFPAY | PROVIDERS: PCP Internal Medicine; Visit Provider Radiology Diagnostic Radiology | DX: Z12.31 Encounter for screening mammogram for malignant neoplasm of breast (principal) | CPT/HCPCS: 77063; 77067 ==

== ENCOUNTER 2023-07-17 07:28 | Outpatient (AMB) | payer BC, SELFPAY ==
--- NOTE | 2023-07-17 07:35 | A.OFFVIS_ITS ---
Vital Signs 07/17/23 07:36 Height 5 ft 3 in Weight 142 lb BMI 25.2 BP 110/72 Blood Pressure Location Rt brachial Position Sitting Pulse 66 Pulse Source Pulse Oximeter Pulse Oximetry (%) 99 Oxygen Delivery Method Room Air Intake Visit Reasons: Follow up HEADACHES-LVM Intake Note: Patient presents for follow up headaches. Patient still getting the headaches had to call out because of headaches. Allergies sumatriptan Allergy (Unknown, Verified 07/17/23 07:40) inadequate response SEASONAL ALLERGIES Allergy (Unknown, Uncoded 07/17/23 07:40) UNKNOWN Medication List - Last Reconciled 07/17/23 by Norma Mejia, JALEEL albuterol sulfate 90 mcg/actuation inhalation aspirin 81 mg PO DAILY 30 days oorwstshnb-jfhhuuxxqjxmg-olxa 50-325-40 mg 1 cap PO Q4H PRN 30 days cetirizine 10 mg PO DAILY fremanezumab-vfrm (Ajovy) 225 mg (1.5 mL) subcut ONCE 30 days pregabalin 150 mg PO TID propranolol ER 80 mg PO DAILY rimegepant (Nurtec ODT) 75 mg PO ONCE PRN 30 days MDD 1 tab zolpidem 10 mg PO BEDTIME PRN HPI Comments Details: 42-yr-old female presents for f/u visit. Pt denies any significant interval medical changes. Pt had an episode in [place], where she had tunnel, vision, dizziness, flushed- like she would pass out. She continues to have bothersome migraine- 1 attack per week lasting 2 days. Has stopped her Rizatriptan. Ibuprofen ineffective. Has not started Ajovy and Nurtec yet- insurance PA pending. Labs were WNL, although Ferritin 55 normal, however pt has s/s of RLS, so lower than goal of 75. She is scheduled for HST next week. She has not heard about head/neck CYA yet. Baseline headache characteristics: Prodrome symptoms: none Aura: Left or right eye but then in both eyes. Sees a dot, transforms into a C shape, becomes zagged, and begins to move, and loses her bilateral peripheral vision. This usually lasts 20 minutes- if longer will be a/w a severe JO. This a/w nausea and sickness. When a/w headache the headache is more severe. The aura w/o the headache occurs once every other week or so. Headache: Mod-Severe Throbbing pain in crown of head. Stabbing pain behind moses eyes. A/w Photophobia, phonophobia, nausea, not right in space dizziness, difficulty concentrating, word finding difficulties, fatigue, right or left watery eye- also has dry eye. Occasional slurred speech. Once (yrs ago)- right facial droop and numbness. Postdrome: Lingering symptoms. [facility] Medical History (Updated 06/14/23 @ 15:02 by Gilda Valenzuela MD) Herpes zoster Bladder spasms Physical exam Rash Impaired glucose tolerance Pre-op evaluation Polyarthralgia PVCs (premature ventricular contractions) Surgical History H/O oral surgery History of lumpectomy of left breast History of Family History Mother Diabetes Pulmonary embolism Father Substance use disorder Social History Housing: House Alcohol intake: current Alcohol intake frequency: holidays/special occasions only Alcohol type: beer Patient Tobacco Use Status: Never used Tobacco e-Cigarette/Vaping Use: Never Used Second Hand Smoke Exposure: No service: No Current occupational status: employed Current occupational exposures/hazards: No Cognitive needs: No Hearing needs: No Vision needs: Yes Physical Exam Vital Signs: Last Vital Signs Pulse 66 07/17/23 07:36 BP 110/72 07/17/23 07:36 Pulse Ox 99 07/17/23 07:36 Oxygen Delivery Method Room Air 07/17/23 07:36 BMI result Body Mass Index 25.2 Const General: cooperative and no acute distress Orientation/consciousness: patient oriented x3 Resp Effort & Inspection: normal respiratory effort and able to speak in complete sentences Neuro General: patient oriented x3 Cranial nerves: Yes CN's II-XII intact bilaterally Cognition (Neuro): normal cognition Psych Appearance: grossly normal Mental Status: mental status grossly normal Speech and movement: Normal speech and movement present Affect: normal affect Attitude: cooperative Assessment & Plan Assessment & Plan (1) Migraines: Code(s): G43.909 - Migraine, unspecified, not intractable, without status migrainosus Category: Medical (2) Migraine with aura: Code(s): G43.109 - Migraine with aura, not intractable, without status migrainosus Category: Medical (3) Cerebellar stroke: Comment: Right Code(s): I63.9 - Cerebral infarction, unspecified Category: Medical (4) Snoring: Code(s): R06.83 - Snoring Category: Medical (5) Sleep difficulties: Code(s): G47.9 - Sleep disorder, unspecified Category: Medical (6) Fatigue: Code(s): R53.83 - Other fatigue Category: Medical Plan For history of cerebellar infarcts seen on brain MRI: Continue aspirin 81 mg q.h.s. Pt advised to undergo: HST to assess for sleep apnea. Will f/u on order for CTA head and neck. Reviewed labs- Ferritin 55- advised to try OTC ferrous sulfate w/ vit C qod- will recheck ferritin at f/u. For overall headache management: Optimize good self-care, including but not limited to maintaining a healthy diet, adequate fluid intake, adequate sleep, and engaging in regular physical a ctivity. For headache triggers: Track headaches, especially after any treatment regimen changes. Migraine [employer] is one of many headache tracking apps. For acute headache treatment: Discussed importance of taking acute medications at the first sign of headache. Discontinue rizatriptan due to history of cerebellar infarct. Trial Nurtec ODT 75 mg q.d. p.r.n.- will f/u on PA status. Until Nuretc available may trial Fioricet prn- advised not to take w/in 5 days of Nurtec. Reviewed potential adverse effects of gepants, including but not limited to fatigue, nausea, dry mouth, constipation. Previous acute migraine medication trials: Rizatriptan w/ Ibuprofen- not always effective and makes her tiredness Acute migraine medication contraindications: All triptans due to history of cerebellar infarct For headache prevention medication: Discussed that preventative medications should be taken routinely as prescribed for best effect, it may take several weeks for full effect to take effect. Continue propranolol ER 80 mg q.d.- used for PVCs. Monitro episodes of lightheadedness. Increase fluids. Continue Pregabalin for fibromyaligia. Start Ajovy 225 mg subcu q.month. Reviewed potential adverse effects of Ajovy, including but not limited to injection site reactions. Previous migraine prevention medication trials: Amitriptyline- ineffective and caused GI upset. Gabapentin and Duloxetine- ineffective for JO or fibromyalgia- used for fibromyalgia. Migraine prevention medication contraindications: None at this time Follow-up upon review of above and f/u in clinic in 6 months or sooner prn. Medications: New jiusactutk-ygajgjojznveq-niao 50-325-40 mg 1 cap PO Q4H 30 days PRN 20 caps 0RF pain Coding Level of Care Code Est Pt Level 4 (50945) Diagnoses Migraines G43.909 Migraine with aura G43.109 Cerebellar stroke I63.9 Snoring R06.83 Sleep difficulties G47.9 Fatigue R53.83
[2023-07-17 07:36] VITALS: BP 110/72; PULSE 66; O2SAT 99; BMI 25.2
== END 2023-07-17 08:09 | disposition home or self-care (01) ==
PROVIDERS: PCP Internal Medicine; Visit Provider Nurse Practitioner Family
DX: G43.E01 Chronic migraine with aura, not intractable, with status migrainosus (principal); I69.398 Other sequelae of cerebral infarction; R06.83 Snoring; G47.9 Sleep disorder, unspecified; R53.83 Other fatigue
CPT/HCPCS: 99214

== ENCOUNTER → 2023-07-17 07:28 | Outpatient (BNVA) | payer BC, SELFPAY | PROVIDERS: PCP Internal Medicine; Visit Provider Nurse Practitioner Family ==

== ENCOUNTER → 2023-07-25 14:54 | Outpatient (REF) | payer BC, SELFPAY | LOC: HO.SL 14:54 | PROVIDERS: PCP Internal Medicine; Visit Provider Nurse Practitioner Family | DX: Z13.89 Encounter for screening for other disorder (principal) ==

== ENCOUNTER 2023-08-21 12:47 | Outpatient (AMB) | payer BC, SELFPAY ==
[2023-08-21 12:49] VITALS: BP 116/68; BMI 25.2
--- NOTE | 2023-08-21 12:49 | MHC.OFFVIS ---
Vital Signs 08/21/23 12:49 Height 5 ft 3 in Weight 142 lb BMI 25.2 BP 116/68 Blood Pressure Location Lt brachial Position Sitting Intake Visit Reasons: [employer]PAR[employer] annual exam/referral Allergies sumatriptan Allergy (Unknown, Verified 08/21/23 12:51) inadequate response SEASONAL ALLERGIES Allergy (Unknown, Uncoded 08/21/23 12:51) UNKNOWN Is last menstrual period known: Yes Last menstrual period: 08/18/23 HPI Comments Details: Presenting for annual exam. No complaints. Last Pap/HPV was negative in 04/22 Last Mammogram was BI-RADS 1 in 07/26 [facility] Medical History Herpes zoster Bladder spasms Physical exam Rash Impaired glucose tolerance Pre-op evaluation Polyarthralgia PVCs (premature ventricular contractions) Surgical History H/O oral surgery History of lumpectomy of left breast History of Family History Mother Diabetes Pulmonary embolism Father Substance use disorder Social History Housing: House Alcohol intake: current Alcohol intake frequency: holidays/special occasions only Alcohol type: beer Patient Tobacco Use Status: Never used Tobacco e-Cigarette/Vaping Use: Never Used Second Hand Smoke Exposure: No service: No Current occupational status: employed Current occupational exposures/hazards: No Cognitive needs: No Hearing needs: No Vision needs: Yes Female Reproductive History Menstrual Duration of menses: <3 days Date of last menstrual period: 08/18/23 control method: none Total pregnancies: 1 Full term: 1 Date of last pap smear: 04/12/17 Date of Mammogram: 07/16/23 Review of Systems Const All systems reviewed & are unremarkable except as noted in HPI and below Card Reports as per HPI Resp Reports as per HPI GI Reports as per HPI and Reports no additional complaints Reports as per HPI Physical Exam Vital Signs: Last Vital Signs BP 116/68 08/21/23 12:49 BMI result Body Mass Index 25.2 Const General: cooperative, healthy appearing and comfortable Chest Chest palpation & inspection: normal inspection of the chest and normal palpation of entire chest wall Breast/axilla inspection: normal inspection of the breasts and normal inspection of the axillae Breast/axilla palpation: normal palpation of the breasts, normal palpation of the axillae and no axillary lymphadenopathy Resp Effort & Inspection: normal respiratory effort Auscultation: clear to auscultation bilaterally Percussion: percussion normal Cardio Palpation: normal PMI Rate: regular rate Rhythm: regular rhythm Heart sounds: no murmurs and no rubs Peripheral pulses: Peripheral pulses 2+ throughout GI Inspection: Yes normal to inspection Palpation (GI): Soft to palpation, nontender, no guarding, not rigid and No hepatosplenomegaly present Percussion: Yes normal to percussion Auscultation: normal bowel sounds Rectal Exam - Female: deferred General: Yes bladder normal to palpation External Female Exam: No lesion Speculum Exam - Vagina: normal appearance of the vagina, normal palpation, normal vaginal discharge and not erythematous Speculum Exam - Cervix: normal appearance of the cervix and normal palpation Bimanual exam- vagina & uterus: normal bimanual exam, normal palpation, uterine size normal, bladder normal to palpation, consistency normal and normal palpation Bimanual Exam- Adnexa, other: normal adnexae (Right adnexa within normal, left adnexal fullness) and no tenderness Assessment & Plan Assessment & Plan (1) Well woman exam: Code(s): Z01.419 - Encounter for gynecological examination (general) (routine) without abnormal findings Category: Medical Plan: Cotesting done. Instructions given the patient to schedule next screening Mammogram in 07/27. Counseled the patient about the recommended dietary allowance of 1000 mg of Calcium & 600 IU of vitamin D. The patient was instructed to perform monthly self-breast exams and to schedule an annual exam in a year; All questions answered and the patient verbalized understanding. Instructed the patient to schedule annual exam in a year (2) Adnexal fullness: Comment: Left side Code(s): N94.9 - Unspecified condition associated with female genital organs and menstrual cycle Category: Medical Plan: Pelvic ultrasound ordered, instructions given the patient to schedule ultrasound follow-up appointment within 2 weeks. All questions answered, the patient verbalized understanding Orders: Orders US pelvic and transvaginal Today N94.9 - Unspecified condition associated with female genital organs and menstrual cycle Pap Smear Today Z01.419 - Encounter for gynecological examination (general) (routine) without abnormal findings Coding Level of Care Code New Pt Prev Care 40-64y(62183) Diagnoses Well woman exam Z01.419 Adnexal fullness N94.9
== END 2023-08-21 13:59 | disposition home or self-care (01) ==
PROVIDERS: PCP Internal Medicine; Visit Provider Obstetrics & Gynecology
DX: Z01.419 Encounter for gynecological examination (general) (routine) without abnormal findings (principal); N94.9 Unspecified condition associated with female genital organs and menstrual cycle
CPT/HCPCS: 99386

== ENCOUNTER 2023-08-21 12:47 | Outpatient (REF) | payer BC, SELFPAY ==
[2023-08-27 20:23] LABS: HPV mRNA E6/E7 rflx Not Detected (Not Detected)
== END 2023-08-21 12:48 | disposition home or self-care (01) ==
LOC: HO.LNP 12:47
PROVIDERS: PCP Internal Medicine; Visit Provider Obstetrics & Gynecology
DX: Z01.419 Encounter for gynecological examination (general) (routine) without abnormal findings (principal); Z11.51 Encounter for screening for human papillomavirus (HPV)
CPT/HCPCS: 87624; 88142

== ENCOUNTER 2023-09-04 15:20 | Outpatient (REF) | payer BC, SELFPAY ==
--- NOTE | ~2023-09-04 | US_ITS ---
EXAMINATION: US PELVIS CLINICAL INFORMATION: Adnexal fullness, last menstrual period 08/18/2023. COMPARISON: 04/10/2018. TECHNIQUE: Ultrasound of the pelvis is performed using both transabdominal and transvaginal transducers along with Doppler. Transvaginal imaging is performed due to inadequate visualization transabdominally. FINDINGS: The uterus is anteverted and measures 8.2 x 3.9 x 4.8 cm. Endometrial thickness is 8 mm. Right ovary measures 2.9 x 1.3 x 1.7 cm, volume 3.4 mL. Left ovary measures 2.5 x 1.8 x 1.3 cm, volume 3.1 mL. The ovaries were difficult to characterize due to bowel gas. Left ovary was better visualized on transabdominal ultrasound images. 8.6 x 5.4 x 5.8 cm right adnexal solid, hypoechoic mass is not identified on 2019 exam. Differential considerations include pedunculated fibroid, exophytic ovarian mass versus extrauterine and extraovarian pelvic mass. Limited visualization due to bowel gas. CT scan with intravenous contrast recommended for further evaluation. US/US pelvic and transvaginal IMPRESSION: 8.6 x 5.4 x 5.8 cm right adnexal solid, hypoechoic mass was not identified on 2019 exam. Differential considerations include pedunculated fibroid, exophytic ovarian mass versus extrauterine/extraovarian pelvic mass. Limited visualization due to bowel gas. CT scan with intravenous contrast recommended for further evaluation. This study was presented to [facility] September 26, 2023 for interpretation. [facility] staff will provide results to referring provider at this time.
== END 2023-09-04 15:21 | disposition home or self-care (01) ==
LOC: HO.US 15:20
PROVIDERS: PCP Internal Medicine; Visit Provider Obstetrics & Gynecology
DX: N94.9 Unspecified condition associated with female genital organs and menstrual cycle (principal)
CPT/HCPCS: 76830; 76856

== ENCOUNTER 2023-09-10 07:56 | Outpatient (REF) | payer BC, SELFPAY ==
--- NOTE | ~2023-09-10 | CT_ITS ---
EXAMINATION: CT SCAN OF THE HEAD CT ANGIOGRAM HEAD CT ANGIOGRAM NECK CLINICAL INFORMATION: Right cerebellar infarction COMPARISON: MRI brain on 10/09/2022 DLP: 2391.03 mGy-cm EXAMINATION: CT brain. FINDINGS: Ventricles, sulci and cisterns are normal. Small elliptical focal encephalomalacia consistent with chronic infarct is again visualized at inferior anterior lateral right cerebellum. There is no midline shift, no abnormal intra- or extra- axial fluid accumulation. Peres and white matter differentiation is normal. Post contrast images show normal enhancement of major intracerebral blood vessels. No enhancing intracranial lesion or abnormal meningeal enhancement could be seen. Bone window images show no evidence of skull fracture. CT/CT angio head neck IMPRESSION: 1. Unchanged chronic anterior inferior lateral right cerebellar infarction. 2. No intracranial hemorrhage or skull fracture is seen. 3. No evidence of space occupying or enhancing intracranial lesion could be found. 4. The current plain CT scan of the brain shows no diagnostic evidence of acute cerebral infarction. EXAMINATION: CT angiogram of brain. CLINICAL INFORMATION: Right cerebellar infarction. TECHNIQUE: CT angiogram of the brain was performed C7 following the administration of 70 mL of Omnipaque 350. Coronal and sagittal images were reconstructed from axial image data. 3-dimensional volumetric maximum intensity projection images in multiple planes were reconstructed on an independent workstation. This was performed under concurrent direct supervision and monitoring by radiologist. Reformatted maximum intensity projection angiographic images of the brain were reconstructed on an independent workstation. This CT examination was performed using dose optimization techniques as appropriate, variously including the following: *Automated exposure control *Adjustment of mA and/or kV according to patient size (this includes techniques or standardized protocols for targeted exams where dose is matched to indication/reason for exam; i.e. extremities or head) *Use of iterative reconstruction technique DLP: 2391.03 mGy-cm FINDINGS: There is normal visualization of bilateral anterior, middle and posterior cerebral arteries, internal carotid arteries, basilar artery and terminal portions of bilateral vertebral arteries. Anterior communicating artery is normal. Bilateral posterior communicating arteries are not well visualized. Bilateral superior cerebellar arteries are patent. Bilateral internal carotid siphons are smoothly patent. There is normal contrast filling of the cerebral venous sinuses. IMPRESSION: 1. Normal CT angiogram of the brain. 2. No focal cerebral arterial lesion or significant arterial stenosis is seen. EXAMINATION: CT angiogram of neck. CLINICAL INFORMATION: Cerebral vascular disease, right cerebellar infarction. TECHNIQUE: Contrast enhanced CT angiogram of the neck and superior mediastinum was performed following the administration of 70 mL of Omnipaque 350. 3-dimensional volumetric maximum intensity projection images in multiple planes were reconstructed on an independent workstation. This was performed under concurrent direct supervision and monitoring by radiologist. Reformatted maximum intensity projection angiographic images of the neck and superior mediastinum were reconstructed on an independent workstation. Magnified images of carotid bifurcations were reconstructed. This CT examination was performed using dose optimization techniques as appropriate, variously including the following: *Automated exposure control *Adjustment of mA and/or kV according to patient size (this includes techniques or standardized protocols for targeted exams where dose is matched to indication/reason for exam; i.e. extremities or head) *Use of iterative reconstruction technique DLP: 2391.03 mGy-cm STENOSIS MEASUREMENT: Degree of stenosis was measured and calculated based on NASCET criteria. Carotid stenosis reference using NASCET criteria: % stenosis = (1 - narrowest ICA diameter/diameter of distal cervical ICA) x 100. Mild - < 50% stenosis. Moderate - 50-69% stenosis. Severe - 70-94% stenosis. Near occlusion - 95-99% stenosis. Occluded - 100% stenosis. FINDINGS: RIGHT SIDE: Right internal carotid artery: Smoothly patent. Right external carotid artery: Smoothly patent. Right common carotid artery: Smoothly patent. Right vertebral artery: Smoothly patent. LEFT SIDE: Left internal carotid artery: Smoothly patent. Left external carotid artery: Smoothly patent. Left common carotid artery: Smoothly patent. Left vertebral artery: Smoothly patent and dominant. At the superior mediastinum, the visualized right innominate artery, bilateral subclavian arteries and common carotid arteries are smoothly patent starting from the origin at the aortic arch. IMPRESSION: 1. Normal CT angiogram of the neck. No evidence of significant carotid stenosis. 2. Patent bilateral vertebral arteries with left-sided dominance.
[2023-09-10] MEDS: iohexoL 350 MG/ML 100 ML INFUS..BTL 70 ML IV (08:45)
== END 2023-09-10 07:57 | disposition home or self-care (01) ==
LOC: HO.CT 07:56
PROVIDERS: PCP Internal Medicine; Visit Provider Nurse Practitioner Family
DX: I63.9 Cerebral infarction, unspecified (principal); G43.109 Migraine with aura, not intractable, without status migrainosus; R00.2 Palpitations; I49.3 Ventricular premature depolarization
CPT/HCPCS: 70496; 70498; Q9967

== ENCOUNTER 2023-09-27 13:23 | Outpatient (REF) | payer BC, SELFPAY ==
[2023-09-27 17:19] LABS: Blood Urea Nitrogen 14 mg/dL (9-16); Estimated Glomerular Filt Rate > 60
== END 2023-09-27 13:24 | disposition home or self-care (01) ==
LOC: HO.LAB 13:23
PROVIDERS: PCP Internal Medicine; Visit Provider Obstetrics & Gynecology
DX: N94.89 Other specified conditions associated with female genital organs and menstrual cycle (principal)
CPT/HCPCS: 36415; 82565; 84520

== ENCOUNTER 2023-09-27 13:23 | Outpatient (AMB) | payer BC, SELFPAY ==
--- NOTE | 2023-09-27 13:23 | A.OFFVIS_ITS ---
Intake Visit Reasons: U/S results Allergies sumatriptan Allergy (Unknown, Verified 08/21/23 12:51) inadequate response SEASONAL ALLERGIES Allergy (Unknown, Uncoded 08/21/23 12:51) UNKNOWN HPI Comments Details: The patient is schedule a telehealth visit to discuss the results the pelvic ultrasound which showed the following: The uterus is anteverted and measures 8.2 x 3.9 x 4.8 cm. Endometrial thickness is 8 mm. Right ovary measures 2.9 x 1.3 x 1.7 cm, volume 3.4 mL. Left ovary measures 2.5 x 1.8 x 1.3 cm, volume 3.1 mL. The ovaries were difficult to characterize due to bowel gas. Left ovary was better visualized on transabdominal ultrasound images. 8.6 x 5.4 x 5.8 cm right adnexal solid, hypoechoic mass is not identified on 2019 exam. Differential considerations include pedunculated fibroid, exophytic ovarian mass versus extrauterine and extraovarian pelvic mass. Limited visualization due to bowel gas. CT scan with intravenous contrast recommended for further evaluation. [facility] Medical History Herpes zoster Bladder spasms Physical exam Rash Impaired glucose tolerance Pre-op evaluation Polyarthralgia PVCs (premature ventricular contractions) Surgical History H/O oral surgery History of lumpectomy of left breast History of Family History Mother Diabetes Pulmonary embolism Father Substance use disorder Social History Housing: House Alcohol intake: current Alcohol intake frequency: holidays/special occasions only Alcohol type: beer Patient Tobacco Use Status: Never used Tobacco e-Cigarette/Vaping Use: Never Used Second Hand Smoke Exposure: No service: No Current occupational status: employed Current occupational exposures/hazards: No Cognitive needs: No Hearing needs: No Vision needs: Yes Review of Systems Const All systems reviewed & are unremarkable except as noted in HPI and below Reports as per HPI and Reports no additional complaints GI Reports no additional complaints Reports no additional complaints Telehealth Telehealth Telehealth Platform: Telephone Location of provider rendering services: practice address Location of patient: address on file Patient Identification confirmed using: Name, : Yes Telehealth method: video Patient verbally consented to treatment: Yes Patient verbally consented to billing insurance company: Yes Patient informed of any privacy concerns related to visit: Yes Assessment & Plan Assessment & Plan (1) Adnexal mass: Code(s): N94.89 - Other specified conditions associated with female genital organs and menstrual cycle Category: Medical Plan: Discussed with the patient the finding on CT scan showing 8.6 cm solid mass of unknown origin could be from the ovary or pedunculated fibroid or other extra uterine and/or adnexal in origin. Will proceed with CT scan of abdomen and pelvis. Instructions given the patient to schedule CT scan with a follow-up appointment as soon as possible. All questions answered, the patient verbalized understanding. I spent a total of 20 minutes reviewing the chart, talking to the patient via video and documenting in the medical record. Orders: Orders CT abdomen pelvis wo/w IV con Today N94.89 - Other specified conditions associated with female genital organs and menstrual cycle Coding Level of Care Code Tele Est Pt Level 1 (76390) Diagnoses Adnexal mass N94.89
== END 2023-09-27 14:20 | disposition home or self-care (01) ==
LOC: HO.HWS 13:23
PROVIDERS: PCP Internal Medicine; Visit Provider Obstetrics & Gynecology
DX: N94.89 Other specified conditions associated with female genital organs and menstrual cycle (principal)
CPT/HCPCS: 99211

== ENCOUNTER 2023-10-22 13:14 | Outpatient (AMB) | payer BC, SELFPAY ==
--- NOTE | 2023-10-22 13:15 | MHC.OFFVIS ---
Intake Visit Reasons: MRI results Allergies sumatriptan Allergy (Unknown, Verified 08/21/23 12:51) inadequate response SEASONAL ALLERGIES Allergy (Unknown, Uncoded 08/21/23 12:51) UNKNOWN HPI Comments Details: The patient is scheduled tele health visit to discuss the results the CT scan showing right sided mass 8.4 cm corresponding to pelvic ultrasound either arising from the ovary or a myoma from the uterus. [facility] Medical History Herpes zoster Bladder spasms Physical exam Rash Impaired glucose tolerance Pre-op evaluation Polyarthralgia PVCs (premature ventricular contractions) Surgical History H/O oral surgery History of lumpectomy of left breast History of Family History Mother Diabetes Pulmonary embolism Father Substance use disorder Social History Housing: House Alcohol intake: current Alcohol intake frequency: holidays/special occasions only Alcohol type: beer Patient Tobacco Use Status: Never used Tobacco e-Cigarette/Vaping Use: Never Used Second Hand Smoke Exposure: No service: No Current occupational status: employed Current occupational exposures/hazards: No Cognitive needs: No Hearing needs: No Vision needs: Yes Review of Systems Const All systems reviewed & are unremarkable except as noted in HPI and below Reports as per HPI and Reports no additional complaints GI Reports no additional complaints Reports no additional complaints Telehealth Telehealth Telehealth Platform: Telephone Location of provider rendering services: practice address Location of patient: address on file Patient Identification confirmed using: Name, : Yes Telehealth method: video Patient verbally consented to treatment: Yes Patient verbally consented to billing insurance company: Yes Patient informed of any privacy concerns related to visit: Yes Assessment & Plan Assessment & Plan (1) Adnexal mass: Comment: Myoma versus ovarian mass Code(s): N94.89 - Other specified conditions associated with female genital organs and menstrual cycle Category: Medical Plan: Discussed with the patient the results of the MRI, differential diagnosis includes but not limited to ovarian mass versus myoma, will order ovarian cancer tumor marker CA 125, CEA, CA 19-9 and refer the patient to Wound Care Technician Oncology. I spent a total of 20 minutes reviewing the chart, talking to the patient via video and documenting in the medical record. Orders: Orders CA-125 Today N83.299 - Other ovarian cyst, unspecified side Carcinoembryonic Antigen Today N83.299 - Other ovarian cyst, unspecified side Carbohydrate Antigen 19-9 Today N83.299 - Other ovarian cyst, unspecified side Referrals Gynecologic Oncology Referral N94.89 - Other specified conditions associated with female genital organs and menstrual cycle Coding Level of Care Code Tele Est Pt Level 1 (23322) Diagnoses Adnexal mass N94.89
== END 2023-10-22 16:39 | disposition home or self-care (01) ==
LOC: HO.HWS 13:14
PROVIDERS: PCP Internal Medicine; Visit Provider Obstetrics & Gynecology
DX: N94.89 Other specified conditions associated with female genital organs and menstrual cycle (principal)
CPT/HCPCS: 99211

== ENCOUNTER → 2023-10-22 13:14 | Outpatient (BNVA) | payer BC, SELFPAY | PROVIDERS: PCP Internal Medicine; Visit Provider Obstetrics & Gynecology ==

== ENCOUNTER → 2023-10-23 07:25 | Outpatient (REF) | payer BC, SELFPAY ==
[2023-10-23 08:46] LABS: Carcinoembryonic Antigen < 1.73 ng/mL
[2023-10-24 09:07] LABS: CA-125 27 U/mL (<35); Carbohydrate Antigen 19-9 20 U/mL (<34)
== END ==
LOC: HO.SL 07:25
PROVIDERS: Absent Provider Obstetrics & Gynecology; Visit Provider Nurse Practitioner Family
DX: R06.83 Snoring (principal); R40.0 Somnolence; G47.9 Sleep disorder, unspecified; R53.83 Other fatigue; I49.3 Ventricular premature depolarization; N83.299 Other ovarian cyst, unspecified side; Z86.73 Personal history of transient ischemic attack (TIA), and cerebral infarction without residual deficits
CPT/HCPCS: 36415; 82378; 86301; 86304; 95806

== ENCOUNTER → 2023-10-23 07:54 | Outpatient (BNV) | payer BC, SELFPAY | PROVIDERS: Absent Provider Obstetrics & Gynecology; Visit Provider Psychiatry & Neurology Neurology | DX: R06.83 Snoring (principal) | CPT/HCPCS: 95806 ==

== ENCOUNTER 2023-12-18 10:07 | Outpatient (REF) | payer BC, SELFPAY ==
--- NOTE | ~2023-12-18 | US_ITS ---
EXAMINATION: US THYROID CLINICAL INFORMATION: Nontoxic single thyroid nodule. COMPARISON: Thyroid ultrasound 07/30/2019 and 11/28/2016. TECHNIQUE: Linear transducer grayscale and color Doppler examination with attention to the region of the thyroid. FINDINGS: SIZE: Measurements of the thyroid lobes and nodules are given in sagittal, anteroposterior and transverse dimensions respectively. Right Thyroid Lobe: 4.9 x 1.4 x 1.4 cm, volume 4.9 mL. Previously 4.4 x 1.5 x 1.8 cm, volume 6.2 mL. Parenchyma: The gland echotexture is homogeneous. Thyroid vascularity is normal. Left Thyroid Lobe: 4.6 x 1.4 x 1.5 cm, volume 5.0 mL. Previously 4.3 x 1.4 x 1.5 cm, volume 4.7 mL. Parenchyma: The gland echotexture is homogeneous. Thyroid vascularity is normal. Isthmus: 0.3 cm in maximum AP dimension. Previously 0.4 cm. Estimated total number of nodules greater than or equal to 1 cm: 1. Head Of Sales And Marketing nodules are described as follows: 1. Location: Right lower pole. Size: 0.5 x 0.2 x 0.4 cm, volume 0.02 mL. Previously: Not documented. Nodule characteristics: Composition: Solid/almost completely solid (2). Echogenicity: Isoechoic (1). Shape: Not taller than wide (0). Margins: Ill-defined (0). Echogenic Foci: None (0). ACR TI-RADS total points: 3 ACR TI-RADS category: 3 2. Location: Left lower pole. Size: 1.1 x 0.7 x 1.3 cm, volume 0.52 mL. Previously: 1.2 x 0.6 x 0.9 cm, volume 0.34 mL. Nodule characteristics: Composition: Spongiform (0). ACR TI-RADS total points: 0 ACR TI-RADS category: 1 Significant change in size (>/= 20% in 2 dimensions and minimal increase of 2 mm or 50% or greater increase in volume): No Change in features: No Change in ACR TI-RADS risk category: No NODES: No lymphadenopathy is seen in the tissue surrounding the thyroid gland. US/US thyroid IMPRESSION: 1. 0.5 cm TR category 3 nodule right lower pole. No follow-up recommended. 2. 1.3 cm TR category 1 nodule left lower pole. No follow-up recommended. 3. Otherwise normal thyroid gland. ACR TI-RADS RECOMMENDATION REFERENCE: Ultrasound-guided fine-needle aspiration, follow up ultrasound, no further followup. * TR1 (0 point) and TR2 (2 points): No FNA or followup * TR3 (3 points): FNA if more than or equal to 2.5 cm in maximum dimension, follow up ultrasound in 1, 3 and 5 years if 1.5 to 2.4 cm in maximum dimension. * TR4 (4-6 points): FNA if more than or equal to 1.5 cm in maximum dimension, follow up ultrasound in 1, 2, 3 and 5 years if 1 to 1.4 cm in maximum dimension. * TR5 (more than or equal to 7 points): FNA if more than or equal to 1 cm in maximum dimension, follow up ultrasound every year for 5 years if 0.5 to 0.9 cm in maximum dimension. * TR3, TR4 or TR5 nodules that are below the size threshold for follow up receive no followup. Electronically signed by: Eyad Canada MD 02/11/2024 02:35 PM [facility]
== END 2023-12-18 10:08 | disposition home or self-care (01) ==
LOC: HO.US 10:07
PROVIDERS: PCP Internal Medicine; Visit Provider Internal Medicine
DX: E04.1 Nontoxic single thyroid nodule (principal)
CPT/HCPCS: 76536

== ENCOUNTER → 2023-12-18 10:08 | Outpatient (BNV) | payer BC, SELFPAY | PROVIDERS: PCP Internal Medicine; Visit Provider Radiology Diagnostic Radiology | DX: E04.1 Nontoxic single thyroid nodule (principal) | CPT/HCPCS: 76536 ==

== ENCOUNTER 2024-01-30 08:40 | Outpatient (AMB) | payer BC, SELFPAY ==
--- NOTE | 2024-01-30 09:03 | A.OFFVIS_ITS ---
Vital Signs 01/30/24 09:06 Height 5 ft 3 in Weight 143 lb BMI 25.3 BP 110/70 Blood Pressure Location Lt brachial Position Sitting Pulse 59 Pulse Source Pulse Oximeter Pulse Oximetry (%) 99 Oxygen Delivery Method Room Air Intake Visit Reasons: 6 month F/U Intake Note: Patient presents for a 6 mo fu for headache. 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 Accompanied by: Self / Same As Patient Allergies sumatriptan Allergy (Unknown, Verified 01/30/24 09:06) inadequate response SEASONAL ALLERGIES Allergy (Unknown, Uncoded 08/21/23 12:51) UNKNOWN Medication List - Last Reconciled 01/30/24 by Norma Mejia, JALEEL albuterol sulfate 90 mcg/actuation inhalation aspirin 81 mg PO DAILY 30 days wcqhzhwqev-njoheccombleo-leaz 50-325-40 mg 1 cap PO Q4H PRN 30 days cetirizine 10 mg PO DAILY fremanezumab-vfrm (Ajovy) 225 mg (1.5 mL) subcut ONCE 30 days ibuprofen 600 mg PO Q6H PRN pregabalin 150 mg PO TID propranolol ER 80 mg PO DAILY 90 days rimegepant (Nurtec ODT) 75 mg PO ONCE PRN 30 days MDD 1 tab zolpidem 10 mg PO BEDTIME PRN HPI Comments Details: 43-yr-old female presents for f/u visit of migraine w/ aura and h/o incidentally found right cerebellar infarct. Pt reports she underwent a bilateral ovary sparing hysterectomy d/t abd pain in setting of benign adnexal mass. HST- no evidence of sleep apnea, AHI 0.1/hr w/ O2 emperatriz 90%, average SpO2 94%. CT/CT head neck 1. Unchanged chronic anterior inferior lateral right cerebellar infarction. 2. No intracranial hemorrhage or skull fracture is seen. 3. No evidence of space occupying or enhancing intracranial lesion could be found. 4. The current plain CT scan of the brain shows no diagnostic evidence of acute cerebral infarction. CT/CT angio head 1. Normal CT angiogram of the brain. 2. No focal cerebral arterial lesion or significant arterial stenosis is seen. CT/CT angio neck 1. Normal CT angiogram of the neck. No evidence of significant carotid stenosis. 2. Patent bilateral vertebral arteries with left-sided dominance. Pt denies interval stroke like s/s Compliant w/ ASA. BP normotensive Due for f/u cardiology appt in Mar- for f/u PVCs. Last echocardiogram was a while ago . Last lipid panel in - showed mildly elevated CHO and LDL. Lipid panel order already ion place by PCP. She continues to have bothersome migraine- 1 attack per week lasting 2 days. Has 2 mild headache dyas per week. Had one attack w/ persistent visual aura throughout the migraine- though was out of her Fioricet so did not tx this migraine. Has stopped her Rizatriptan. Ibuprofen ineffective. Has not started Ajovy and Nurtec yet- there was an issue obtaining insurance PA.. Baseline headache characteristics: Prodrome symptoms: none Aura: Left or right eye but then in both eyes. Sees a dot, transforms into a C shape, becomes zagged, and begins to move, and loses her bilateral peripheral vision. This usually lasts 20 minutes- if longer will be a/w a severe JO. This a/w nausea and sickness. When a/w headache the headache is more severe. The aura w/o the headache occurs once every other week or so. Headache: Mod-Severe Throbbing pain in crown of head. Stabbing pain behind moses eyes. A/w Photophobia, phonophobia, nausea, not right in space dizziness, difficulty concentrating, word finding difficulties, fatigue, right or left watery eye- also has dry eye. Occasional slurred speech. Once (yrs ago)- right facial droop and numbness. Postdrome: Lingering symptoms. [facility] Medical History Herpes zoster Bladder spasms Physical exam Rash Impaired glucose tolerance Pre-op evaluation Polyarthralgia PVCs (premature ventricular contractions) Surgical History H/O oral surgery History of lumpectomy of left breast History of Family History Mother Diabetes Pulmonary embolism Father Substance use disorder Social History Housing: House Alcohol intake: current Alcohol intake frequency: holidays/special occasions only Alcohol type: beer Patient Tobacco Use Status: Never used Tobacco e-Cigarette/Vaping Use: Never Used Second Hand Smoke Exposure: No service: No Current occupational status: employed Current occupational exposures/hazards: No Cognitive needs: No Hearing needs: No Vision needs: Yes Physical Exam Vital Signs: Last Vital Signs Pulse 59 01/30/24 09:06 BP 110/70 01/30/24 09:06 Pulse Ox 99 01/30/24 09:06 Oxygen Delivery Method Room Air 01/30/24 09:06 BMI result Body Mass Index 25.3 Const General: cooperative and no acute distress Orientation/consciousness: patient oriented x3 Resp Effort & Inspection: normal respiratory effort and able to speak in complete sentences Neuro General: patient oriented x3 and moves all extremities Cranial nerves: Yes CN's II-XII intact bilaterally Cognition (Neuro): normal cognition Psych Appearance: grossly normal Mental Status: mental status grossly normal Speech and movement: Normal speech and movement present Affect: normal affect Attitude: cooperative Assessment & Plan Assessment & Plan (1) Migraines: Code(s): G43.909 - Migraine, unspecified, not intractable, without status migrainosus Category: Medical (2) Migraine with aura: Code(s): G43.109 - Migraine with aura, not intractable, without status migrainosus Category: Medical (3) Cerebellar stroke: Comment: Right Code(s): I63.9 - Cerebral infarction, unspecified Category: Medical (4) Snoring: Code(s): R06.83 - Snoring Category: Medical (5) Sleep difficulties: Code(s): G47.9 - Sleep disorder, unspecified Category: Medical (6) Fatigue: Code(s): R53.83 - Other fatigue Category: Medical Plan For history of cerebellar infarcts seen on brain MRI: Continue aspirin 81 mg q.h.s. Reviewed HST- reassuring study results w/o evidence of sleep apnea w/ AHI 0.1/hr w/ O2 emperatriz 90%, average SpO2 94%. Consider f/u in-lab PSG if pt develops worrisome sleep s/s. Reviewed CT/CTA head neck- stable chronic anterior inferior lateral right cerebellar infarction. No evidence of intracranial vascular aneurysm, stenosis. No evidence of extracranial carotid vascular stenosis or aneurysm. Patent bilateral vertebral arteries with left-sided dominance- normal variant. F/u w/ cardiology as scheduled- pt is due for 2 yr f/u of PVCs. Message sent to cardiology to book f/u appt. For RLS: Previous Ferritin 55. OTC ferrous sulfate w/ vit C qod Recheck labs. Ferritin goal > 75-100. For overall headache management: Optimize good self-care, including but not limited to maintaining a healthy diet, adequate fluid intake, adequate sleep, and engaging in regular physical activity. For headache triggers: Track headaches, especially after any treatment regimen changes. Migraine [employer] is one of many headache tracking apps. For acute headache treatment: Discussed importance of taking acute medications at the first sign of headache. Discontinue rizatriptan due to history of cerebellar infarct. Again trial Nurtec ODT 75 mg q.d. p.r.n.- will f/u on PA status. Hold Fioricet to allow for adequate Nurtec trial. Previous acute migraine medication trials: Rizatriptan w/ Ibuprofen- not always effective and makes her tiredness Acute migraine medication contraindications: All triptans due to history of cerebellar infarct For headache prevention medication: Discussed that preventative medications should be taken routinely as prescribed for best effect, it may take several weeks for full effect to take effect. Continue propranolol ER 80 mg q.d.- used for PVCs. Monitro episodes of lightheadedness. Increase fluids. Continue Pregabalin for fibromyaligia. Again start Ajovy 225 mg subcu q.month- will f/u on PA status. Previous migraine prevention medication trials: Amitriptyline- ineffective and caused GI upset. Gabapentin and Duloxetine- ineffective for JO or fibromyalgia- used for fibromyalgia. Migraine prevention medication contraindications: None at this time Follow-up upon review of above and f/u in clinic in 6 months or sooner prn. Orders: Orders Ferritin Today I63.9 - Cerebral infarction, unspecified, R53.83 - Other fatigue, R79.0 - Abnormal level of blood mineral IRON PROFILE Today I63.9 - Cerebral infarction, unspecified, R53.83 - Other fatigue, R79.0 - Abnormal level of blood mineral Complete Blood Count Auto Diff Today I63.9 - Cerebral infarction, unspecified, R53.83 - Other fatigue, R79.0 - Abnormal level of blood mineral Comprehensive Met. Panel Today I63.9 - Cerebral infarction, unspecified, R53.83 - Other fatigue, R79.0 - Abnormal level of blood mineral Medications: Refilled fremanezumab-vfrm (Ajovy) administer 225mg sc q month 225 mg (1.5 mL) subcut ONCE 30 days 1.5 mL 6RF rimegepant (Nurtec ODT) 75 mg PO ONCE 30 days PRN 16 tabs 3RF migraine headache MDD 1 tab Coding Level of Care Code Est Pt Level 4 (45755) Complex EM visit Add On G2211 Diagnoses Migraines G43.909 Migraine with aura G43.109 Cerebellar stroke I63.9 Snoring R06.83 Sleep difficulties G47.9 Fatigue R53.83
[2024-01-30 09:06] VITALS: BP 110/70; PULSE 59; O2SAT 99; BMI 25.3
== END 2024-01-30 10:05 | disposition home or self-care (01) ==
PROVIDERS: PCP Internal Medicine; Visit Provider Nurse Practitioner Family
DX: G43.109 Migraine with aura, not intractable, without status migrainosus (principal); I69.398 Other sequelae of cerebral infarction; R06.83 Snoring; G47.9 Sleep disorder, unspecified; R53.83 Other fatigue
CPT/HCPCS: 99214

== ENCOUNTER 2024-02-08 09:51 | Outpatient (REF) | payer BC, SELFPAY ==
[2024-02-08 10:10] LABS: MANUAL DIFF FLAG NO
[2024-02-08 10:41] LABS: Basophils Absolute Auto 0.1 X10*3/uL (0.0-0.2); Basophils Percent Auto 0.7 % (0-2); Eosinophils Absolute Auto 0.4 X10*3/uL (0.0-0.4); Eosinophils Percent Auto 4.6 % (0-4); Hematocrit 39.2 % (37.0-47.0); Hemoglobin 13.5 g/dl (12.0-16.0); Imm Gran Abs Auto 0.02 X10*3/uL (0.00-0.03); Imm Gran Pct Auto 0.3 % (0.0-0.4); Lymphocytes Absolute Auto 2.4 X10*3/uL (1.2-4.9); Lymphocytes Percent Auto 31.3 % (20-40); Mean Corpuscular HGB Conc 34.4 g/dl (31.0-35.0); Mean Corpuscular Hemoglobin 29.9 pg (27.0-33.0); Mean Corpuscular Volume 86.9 fL (80.0-98.0); Mean Platelet Volume 10.7 fL (9.4-12.3); Monocytes Absolute Auto 0.5 X10*3/uL (0.1-1.2); Monocytes Percent Auto 6.4 % (2-11); Neutrophils Absolute Auto 4.3 x10*3/uL (2.0-8.3); Neutrophils Percent Auto 56.7 % (45-73); Platelet Count 266 X10*3/uL (160-400); Red Blood Count 4.51 X10*6/uL (4.20-5.50); Red Cell Distribution Width 12.3 % (11.0-16.0); White Blood Count 7.6 X10*3/uL (4.8-10.8)
[2024-02-08 11:27] LABS: Alanine Aminotransferase 12 U/L (0-31); Albumin Level 4.4 g/dL (3.5-5.0); Alkaline Phosphatase 66 U/L (39-117); Anion Gap 13 (12-20); Aspartate Amino Transferase 18 U/L (5-31); Bilirubin Total 0.6 mg/dL (0.0-1.0); Blood Urea Nitrogen 14 mg/dL (9-16); Calcium 9.7 mg/dL (8.4-10.2); Carbon Dioxide 26 mmol/L (22-29); Chloride 105 mmol/L (96-108); Cholesterol 213 mg/dL (<200); Estimated Glomerular Filt Rate > 60; Glucose Random 126 mg/dL (60-115); HDL Cholesterol 58 mg/dL (>40); Iron 96 mcg/dL (30-160); LDL Cholesterol Calculated 127 mg/dL (<100); Percent Iron Saturation 32 % (15-50); Potassium 3.8 mmol/L (3.3-5.1); Sodium 140 mmol/L (135-145); Total Iron Binding Capacity 297 mcg/dL (228-428); Total Protein 7.6 g/dL (6.5-8.0); Triglycerides 144 mg/dL (<150); Unsaturated Iron Binding 201 ug/dL
[2024-02-08 11:47] LABS: Ferritin 29 ng/mL (10-250)
[2024-02-08 12:54] LABS: Thyroid Stimulating Hormone 0.92 uIU/mL (0.32-4.0)
--- OUTSIDE RECORDS SUMMARY | 2024-02-13 07:13 | XMS_ITS | Continuity of Care Document ---
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 Start Date: 10/29/23 Status: Ordered Repeat number: 1 ibuprofen 600 mg oral tablet 600 mg, 1, tablet, By Mouth, 4 times a day, PRN, # 40 tablet, Refills 0, Tot. Refills 0, Maintenance, for pain, 12/24/23 2:00:00 PM EDT, Route to Pharmacy Electronically, [facility], Partial fill upon patient request if the prescription is for a schedule II opioid drug., 160, cm, 12/24/23 9:50:00 EDT, Height, 65, kg, 12/24/23 9:50:00 EDT, Dry Weight Start Date: 12/24/23 Status: Ordered Quantity: 40.0 Unit: tablet Repeat number: 1 Lyrica = 150 mg, By Mouth, 3 times a day, 0 Refills, Maintenance, 03/03/13 7:52:15 AM EST Start Date: 03/03/13 Status: Ordered Repeat number: 1 MiraLax oral powder for reconstitution = 17 Gm, By Mouth, Daily, dissolve in water or juice, # 255 Gm, 0 Refills, Maintenance, 12/24/23 2:00:00 PM EDT, REC Powder, [facility], Partial fill upon patient request if the prescription is for a schedule II opioid drug., 17 Gm By Mouth Daily,Instr:dissolve in water or juice, 160,cm, 12/24/23 9:50:00 EDT, Height, 65, kg, 12/24/23 9:50:00 EDT, Dry Weight Start Date: 12/24/23 Status: Ordered Quantity: 255.0 Unit: g Repeat number: 1 oxyCODONE 5 mg oral tablet 5 mg, 1, tablet, By Mouth, Every 6 hours, PRN, # 20 tablet, Refills 0, Tot. Refills 0, Maintenance,for pain, 01/08/24 12:01:00 PM EST, Route to Pharmacy Electronically, [facility] #[id number], Partial fill upon patient request if the prescription is for a schedule II opioid drug., 160, cm, 12/25/23 6:49:00 EDT, Height, 65, kg, 12/24/23 9:50:00 EDT, Dry Weight Start Date: 01/08/24 Status: Ordered Quantity: 20.0 Unit: tablet Repeat number: 1 Propranolol 80 mg, By Mouth, Daily at bedtime, Refills 0, Maintenance, 10/29/23 8:35:00 AM EDT, Partial fill upon patient request if the prescription is for a schedule II opioid drug. Start Date: 10/29/23 Status: Ordered Repeat number: 1 Senna 8.6 mg oral tablet 17.2 mg, 2, tablet, By Mouth, Daily at bedtime, PRN, # 100 tablet, Refills 0, Tot. Refills 0, Maintenance, for constipation, 01/16/24 9:50:00 AM EST, Route to Pharmacy Electronically, [facility]/pharmacy #[id number] Tablet, Partial fill upon patient request if the prescription is for a schedule II opioid drug.,158.3, cm, 01/16/24 9:43:00 EST, Height, 64.6, kg, 01/16/24 9:43:00 EST, Dry Weight Start Date: 01/16/24 Status: Ordered Quantity: 100.0 Unit: tablet Repeat number: 1 Indication: Constipation, unspecified simethicone 80 mg oral tablet, chewable 80 mg, 1, tablet, Chew, 4 times a day, PRN, # 36 tablet, Refills 0, Tot. Refills 0, Maintenance, asneeded for gas, 12/25/23 7:50:00 AM EDT, Route to Pharmacy Electronically, [facility], Partial fill upon patient request if the prescription is for a schedule II opioid drug., 160, cm, 12/25/23 6:49:00 EDT, Height, 65, kg, 12/24/23 9:50:00 EDT, Dry Weight Start Date: 12/25/23 Status: Ordered Quantity: 36.0 Unit: tablet Repeat number: 1 simethicone 80 mg oral tablet, chewable 80 mg, 1, tablet, Chew, 4 times a day, PRN, # 12 tablet, Refills 0, Tot. Refills 0, Maintenance, asneeded for gas, 12/24/23 2:00:00 PM EDT, Route to Pharmacy Electronically, [facility] 3, Partial fill upon patient request if the prescription is for a schedule II opioid drug., 160, cm, 12/24/23 9:50:00 EDT, Height, 65, kg, 12/24/23 9:50:00 EDT, Dry Weight Start Date: 12/24/23 Status: Ordered Quantity: 12.0 Unit: tablet Repeat number: 1 Tylenol 325 mg oral tablet 650 mg, 2, tablet, By Mouth, Every 4 hours, PRN, # 50 tablet, Refills 0, Tot. Refills 0, Maintenance, for pain, 12/24/23 2:00:00 PM EDT, Route to Pharmacy Electronically, [facility] 3, Partial fill upon patient request if the prescription is for a schedule II opioid drug., 160, cm, 12/24/23 9:50:00 EDT, Height, 65, kg, 12/24/23 9:50:00 EDT, Dry Weight Start Date: 12/24/23 Status: Ordered Quantity: 50.0 Unit: tablet Repeat number: 1 zolpidem 10 mg oral tablet 0.5 tablet = 5 mg, By Mouth, Daily at bedtime, 0 Refills, Maintenance, 12/07/23 9:50:00 AM EDT, Tablet, Partial fill upon patient request if the prescription is for a schedule II opioid drug. Start Date: 12/07/23 Status: Ordered Repeat number: 1 Problem List Condition Confirmation Course Effective Dates Status H ealth Status Informant Fibromyalgia Confirmed Active Herpes zoster Confirmed Active History of stroke - dx after went to neuro with headaches, no deficiets just migraines Confirmed Active Impaired glucose tolerance Confirmed Active Adnexal mass Confirmed Active Polyarthralgia Confirmed Active PVC (premature ventricular contraction) Confirmed Active Follow-up examination after gynecological surgery Confirmed Active Fibroid uterus Confirmed Active Social History Social History Type Response Smoking Status Never (less than 100 in lifetime) entered on: 10/29/23 Sex Sex Representation Female (finding) Patient Care team information Care Team Personnel Name: Galdino Valenzuela MD , Gilda Ralph Position: Reference Physician Member Role: PCP Address: [address] [facility] [address] [place] [address] Telecom: Care Team Related Persons Name: ELLEN BRAMBILA Name: MIQUEL DOWD Insurance Providers Guarantor name: HANSA TEAGUE Health Plan Information #: 1 Payer: HMO BL[employer] IN NETWORK Member Number: NA Policy Number: NA Group Number: NA
--- OUTSIDE RECORDS SUMMARY | 2024-02-13 07:13 | XMS_ITS | Continuity of Care Document ---
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 [address] [place] [address] Attending Physician: Bridgett Whitten MD Admitting Physician: Bridgett Whitten MD Encounter Type: Pre-OutPatient One Time Allergies, Adverse Reactions, Alerts Substance Criticality Severity [...] 2:00:00 PM EDT, Route to Pharmacy Electronically, [facility], Partial fill upon patient request [...] Maintenance, 12/24/23 2:00:00 PM EDT, REC Powder, [facility], Partial fill upon patient request if [...] 12:01:00 PM EST, Route to Pharmacy Electronically, [facility]/pharmacy #[id number], Partial fill upon patient request if [...] 9:50:00 AM EST, Route to Pharmacy Electronically, [facility]/pharmacy #[id number] Tablet, Partial fill upon patient request [...] 7:50:00 AM EDT, Route to Pharmacy Electronically, [facility], Partial fill upon patient request [...] 2:00:00 PM EDT, Route to Pharmacy Electronically, [facility] 3, Partial fill upon patient request [...] 2:00:00 PM EDT, Route to Pharmacy Electronically, [facility] 3, Partial fill upon patient request [...] Position: Reference Physician Member Role: PCP Address: [address] [place] [address] [address] [place] [address] Telecom: Care Team Related Persons Name: ELLEN BRAMBILA Name: MIQUEL DOWD Insurance Providers Guarantor name: HANSA TEAGUE Health Plan Information #: 1 Payer: [employer] Member Number: [id number] Policy Number: NA Group Number: [id number] Health Plan Information #: 2 Payer: [employer] Member Number: [id number] Policy Number: NA Group Number: [id number]
--- OUTSIDE RECORDS SUMMARY | 2024-02-13 07:13 | XMS_ITS | Continuity of Care Document ---
Author Organization [facility]IL[facility] SPECIALIST Oncolog y Address [address] [place] [id number]- Care Team Providers Care Clinical Associate Name Role Phone Galdino Valenzuela MD, Agustina Primary Care Physician Encounter [facility] [place] [facility] [id number] Date(s): 01/08/24 - 02/07/24 [facility] FERTILIZ[facility] SPECIALIST Oncology [address] [place] [id number]- Attending Physician: Ross Bowens Admitting Physician: Ross Bowens Referring Physician: Ross Bowens Encounter Type: Triage Allergies, Adverse Reactions, Alerts [...] 2:00:00 PM EDT, Route to Pharmacy Electronically, [facility], Partial fill upon [...] Maintenance, 12/24/23 2:00:00 PM EDT, REC Powder, [facility], Partial fill upon patient request if [...] PM EST, Route to Pharmacy Electronically, [facility] #[id number], Partial fill upon patient request [...] AM EST, Route to Pharmacy Electronically, [facility]/pharmacy #[id number] Tablet, Partial fill upon patient [...] 7:50:00 AM EDT, Route to Pharmacy Electronically, [facility], Partial fill upon patient request [...] 2:00:00 PM EDT, Route to Pharmacy Electronically, [facility], Partial fill upon patient request [...] 2:00:00 PM EDT, Route to Pharmacy Electronically, [facility], Partial fill upon patient request [...] Position: Reference Physician Member Role: PCP Address: [address] [place] [address] [address] [place] [address]- Telecom: Care Team Related Persons Name: ELLEN BRAMBILA Name: MIQUEL DOWD Insurance Providers Guarantor name: HANSA TEAGUE Health Plan Information #: 1 Payer: HMO [employer] Member Number: NA Policy Number: NA Group Number: NA
[2024-02-13 22:09] LABS: Thyroglobulin Antibodies <1 IU/mL (< or = 1); Thyroid Peroxidase Antibodies 1 IU/mL (<9)
== END 2024-02-08 09:52 | disposition home or self-care (01) ==
LOC: HO.LAB 09:51
PROVIDERS: Absent Provider Nurse Practitioner Family; PCP Internal Medicine; Visit Provider Internal Medicine
DX: I63.9 Cerebral infarction, unspecified (principal); R79.0 Abnormal level of blood mineral; R53.83 Other fatigue; E78.5 Hyperlipidemia, unspecified; E04.1 Nontoxic single thyroid nodule
CPT/HCPCS: 36415; 80053; 80061; 82728; 83540; 84439; 84443; 85025; 86376; 86800

== ENCOUNTER 2024-06-02 15:07 | Outpatient (AMB) | payer BC, SELFPAY ==
--- NOTE | 2024-06-02 15:23 | A.OFFVIS_ITS ---
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 Allergies sumatriptan Allergy (Unknown, Verified 01/30/24 09:06) inadequate response SEASONAL ALLERGIES Allergy (Unknown, Uncoded 08/21/23 12:51) UNKNOWN Medication List - Last Reconciled 06/02/24 by Epifanio Shook MD albuterol sulfate 90 mcg/actuation inhalation aspirin 81 mg PO DAILY 30 days cetirizine 10 mg PO DAILY fremanezumab-vfrm (Ajovy) 225 mg (1.5 mL) subcut ONCE 30 days ibuprofen 600 mg PO Q6H PRN pregabalin 150 mg PO TID propranolol ER 80 mg PO DAILY rimegepant (Nurtec ODT) 75 mg PO ONCE PRN 30 days MDD 1 tab zolpidem 10 mg PO BEDTIME PRN HPI Comments Details: Priscilla comes for follow-up. She was referred by Neurology for more urgent follow-up because recent MRI imaging showed right cerebellar infarct. This is unusual. She had an MRI done because of persistent and significant migraine headaches. She is currently on treatment for migraine headaches and symptoms improved but still present. She has not had any disequilibrium or any other neurologic symptoms related to cerebellar infarct. She has had no prior history of atrial fibrillation. She does says at home mother at age 50 with pulmonary embolism. She was herself never had any evidence of venous thromb oembolism in the past. No clear evidence of PFO in the past although this needs to be investigated further. She was started on low-dose aspirin therapy recently. She has not had any significant palpitation irregular heartbeat. [facility] Medical History Herpes zoster Bladder spasms Physical exam Rash Impaired glucose tolerance Pre-op evaluation Polyarthralgia PVCs (premature ventricular contractions) Surgical History H/O oral surgery History of lumpectomy of left breast History of Family History Mother Diabetes Pulmonary embolism Father Substance use disorder Social History Housing: House Alcohol intake: current Alcohol intake frequency: holidays/special occasions only Alcohol type: beer Patient Tobacco Use Status: Never used Tobacco e-Cigarette/Vaping Use: Never Used Second Hand Smoke Exposure: No service: No Current occupational status: employed Current occupational exposures/hazards: No Cognitive needs: No Hearing needs: No Vision needs: Yes Review of Systems Const Denies chills, Denies fatigue, Denies fever(s), Denies frequent falls, Denies weakness, Denies weight gain and Denies weight loss ENT Denies dizziness Card Denies chest pain, Denies leg edema, Denies lightheadedness, Denies palpitations, Denies dyspnea, Denies dyspnea on exertion, Denies orthopnea and Denies other (loss of consciousness) Resp Denies cough, Denies dyspnea and Denies dyspnea on exertion GI Denies hematochezia and Denies change in stool character Musc Denies abnormal gait, Denies muscle weakness, Denies numbness, Denies radiating pain into limb and Denies tingling Neuro Denies abnormal gait, Denies dizziness, Denies frequent falls, Denies numbness, Denies tingling and Denies weakness Endo Denies fatigue and Denies palpitations Physical Exam Vital Signs: Last Vital Signs Pulse 59 06/02/24 15:24 BP 110/70 06/02/24 15:24 BMI result Body Mass Index 25.0 Const General: cooperative, comfortable and awake Nutritional Appearance: average body habitus Orientation/consciousness: patient oriented x3 Limitations: no limitations Neck Neck: Yes trachea midline, Yes supple and Yes no JVD Chest Chest palpation & inspection: normal inspection of the chest Resp Effort & Inspection: normal respiratory effort Auscultation: clear to auscultation bilaterally Cardio Jugular venous distension: no JVD Palpation: normal PMI Rate: regular rate Rhythm: regular rhythm Heart sounds: S1 normal heart sound present and S2 normal heart sound present GI Auscultation: normal bowel sounds Skin General skin exam: no rashes or lesions noted Neuro General: patient oriented x3 and no focal motor deficits Extrem General: Yes no clubbing, cyanosis or edema Psych Appearance: grossly normal Office Procedures EKG Details: EKG shows sinus bradycardia otherwise normal EKG 40736-Gaqenmkqsfdztjczw, Complete Assessment & Plan Assessment & Plan (1) Cerebellar stroke: Comment: Right Code(s): I63.9 - Cerebral infarction, unspecified Category: Medical Plan: Patient with noted right cerebellar stroke on recent MRI without any obvious symptoms related to it. Etiology is unclear. Question vasospastic related to intense migraine headaches although given her age further workup needs to be considered at this will be changing her management. I would consider ROCIO to rule out any evidence of PFO. Also suggest a cardiac event monitor to rule out any other cardiac arrhythmias such as atrial fibrillation although less likely. Given her mother's history of pulmonary embolism, thrombophilic workup needs to be pursued. Further treatment based on the findings of the test results. Follow-up in 2 months time. Discussed with her about the procedure of ROCIO including risks, benefits, alternatives. She understands agrees. This will be scheduled in near future. (2) PVCs (premature ventricular contractions): Code(s): I49.3 - Ventricular premature depolarization Category: Medical Plan: PVCs which are currently suppressed on therapy with propranolol. She has done very well with the therapy. Continue propranolol therapy. Avoidance of stimulants was discussed. Advised to call me with new symptoms. Will follow up in the clinic in 2 months time, sooner p.r.n.. Thank you for allowing me to partake in his care Orders: Orders Prothrombin Time INR Today I63.9 - Cerebral infarction, unspecified Factor V Leiden Today I63.9 - Cerebral infarction, unspecified CA echo transesophageal w con Today I63.9 - Cerebral infarction, unspecified ECG 30 day event monitor Today I63.9 - Cerebral infarction, unspecified Partial Thromboplastin Time Today I63.9 - Cerebral infarction, unspecified Cardiolipin Antibodies Today I63.9 - Cerebral infarction, unspecified Lupus Anticoagulant Panel Today I63.9 - Cerebral infarction, unspecified Homocysteine Today I63.9 - Cerebral infarction, unspecified Coding Level of Care Code Est Pt Level 4 (58195) Complex EM visit Add On G2211 Diagnoses Cerebellar stroke I63.9 PVCs (premature ventricular contractions) I49.3 CPT Codes EKG - CPT: 33756-Eevibywwjofuobtom, Complete ([id number])
[2024-06-02 15:24] VITALS: BP 110/70; PULSE 59; BMI 25.0
== END 2024-06-02 15:55 | disposition home or self-care (01) ==
PROVIDERS: PCP Internal Medicine; Visit Provider Internal Medicine Cardiovascular Disease
DX: I63.9 Cerebral infarction, unspecified (principal); I49.3 Ventricular premature depolarization
CPT/HCPCS: 93010; 99214

== ENCOUNTER 2024-06-02 15:07 | Outpatient (REF) | payer BC, SELFPAY ==
[2024-06-02 17:12] LABS: INTERNATIONAL NORM RATIO 0.9 (0.9-1.1); Prothrombin Time 10.4 SEC (10.9-12.4)
[2024-06-03 18:07] LABS: Homocysteine 10.7 umol/L (<10.4)
[2024-06-03 22:53] LABS: Cardiolipin IgG Ab <2.0 GPL-U/mL; Cardiolipin IgM Ab 4.8 MPL-U/mL
[2024-06-05 09:48] LABS: PTT (LAC) Screen 31 sec (<=40)
[2024-06-11 18:33] LABS: Factor V Leiden NEGATIVE
== END 2024-06-02 15:08 | disposition home or self-care (01) ==
LOC: HO.LAB 15:07
PROVIDERS: PCP Internal Medicine; Visit Provider Internal Medicine Cardiovascular Disease
DX: I63.9 Cerebral infarction, unspecified (principal); R00.1 Bradycardia, unspecified
CPT/HCPCS: 36415; 81241; 83090; 85597; 85598; 85610; 85613; 85730; 86147; 93005

== ENCOUNTER 2024-06-17 14:20 | Outpatient (AMB) | payer BC, SELFPAY ==
--- NOTE | 2024-06-17 14:36 | A.OFFPC_ITS ---
Vital Signs 06/17/24 14:39 Height 5 ft 3 in Weight 141 lb BMI 25.0 BP 130/70 Blood Pressure Location Lt brachial Position Sitting Intake Visit Reasons: Annual Exam Intake Note: Patient here for a physical exam Certified Pharmacist Assistant Required: No Accompanied by: Self / Same As Patient Allergies sumatriptan Allergy (Unknown, Verified 06/17/24 14:50) inadequate response adhesive tape Adverse Reaction (Severe, Verified 06/17/24 14:50) rash SEASONAL ALLERGIES Allergy (Unknown, Uncoded 06/17/24 14:50) UNKNOWN Medication List - Last Reconciled 06/17/24 by Gilda Valenzuela MD albuterol sulfate 90 mcg/actuation inhalation aspirin 81 mg PO DAILY 30 days cetirizine 10 mg PO DAILY fremanezumab-vfrm (Ajovy) 225 mg (1.5 mL) subcut ONCE 30 days ibuprofen 600 mg PO Q6H PRN pregabalin 150 mg PO TID propranolol ER 80 mg PO DAILY rimegepant (Nurtec ODT) 75 mg PO ONCE PRN 30 days MDD 1 tab zolpidem 10 mg PO BEDTIME PRN Tobacco use date assessed: 06/17/24 Dental Screening Dental Screen Date: 06/17/24 Did you have a dental visit in the last 12 months?: No Did you have a dental problem in the last 6 months where you did not have access to dental care?: No Was dental information given to patient?: Patient has dentist HPI HPI Comments History of Present Illness Details The patient is a 43-year-old female presenting - Last mammography conducted in July of the previous year. - Last mammography conducted in July of t he previous year. - Pap smear completed with follow-up hys terectomy. - Immunizations updated with the Tetanus vaccine in the last 10 years. - Last comprehensive lab work completed in February, showing normal kidney function and iron levels. [facility] Medical History (Updated 06/17/24 @ 15:03 by Gilda Valenzuela MD) Herpes zoster Bladder spasms Physical exam Rash Impaired glucose tolerance Pre-op evaluation Polyarthralgia PVCs (premature ventricular contractions) Surgical History (Updated 06/17/24 @ 14:55 by Gilda Valenzuela MD) History of endometrial ablation History of hysterectomy H/O oral surgery History of lumpectomy of left breast History of Family History Mother Diabetes Pulmonary embolism Father Substance use disorder Social History Housing: House Alcohol intake: current Alcohol intake frequency: holidays/special occasions only Alcohol type: beer Patient Tobacco Use Status: Never used Tobacco e-Cigarette/Vaping Use: Never Used Second Hand Smoke Exposure: No service: No Current occupational status: employed Current occupational exposures/hazards: No Cognitive needs: No Hearing needs: No Vision needs: Yes Questionnaire PHQ-9 Over the last 2 weeks, how often have you been bothered by any of the following problems? 1. Little interest or pleasure in doing things: not at all 2. Feeling down, depressed, or hopeless: not at all 3. Trouble falling or staying asleep, or sleeping too much: not at all 4. Feeling tired or having little energy: not at all 5. Poor appetite or overeating: not at all 6. Feeling bad about yourself - or that you are a failure or have let yourself or your family down: not at all 7. Trouble concentrating on things, such as reading the newspaper or watching television: not at all 8. Moving or speaking so slowly that other people could have noticed. Or the op posite - being so fidgety or restless that you have been moving around a lot more than usual: several days 9. Thoughts that you would be better off or of hurting yourself in some way: not at all Total score: 1 Depression Screening Interpretation: Negative Depression Screening Done: Yes 84260 - PHQ-9 Billing: Yes Source: Developed by Drs. Greg Lazo, Celi Pickard, Jason Liu and colleagues, with an educational juan from [employer]. Thrive Questionnaire Date Thrive assessed: 06/17/24 I am a: Patient What is your living situation today?: I have a steady place to live Within the past 12 months, did the food you bought not last and you didn't have the money to get more?: Never true Within the past 12 months, did you worry whether your food would run out before you got money to buy more?: Never true Do you have trouble paying for medicines?: No Do you have trouble getting transportation to medical appointments?: No Do you have trouble paying your heating and electricity bill?: No Do you have trouble taking care of your child, family member or friend?: No Do you have trouble with day-to-day activities such as bathing, preparing meals, shopping, managing finances, etc.?: No Are you currently unemployed and looking for a job?: No Are you interested in more education?: No Please select the resources that you would like help with: None Currently or been in a relationship where the following occur: No concerns reported THRIVE Score: 0 AUDIT C Alcohol Use Questionnaire (AUDIT-C) 1. How often do you have a drink containing alcohol?: Monthly or less 2. How many drinks containing alcohol do you have on a typical day when you are drinking?: 1 or 2 3. How often do you have six or more drinks on one occasion?: Never Total Score: 1 Score Reviewed/Action Taken: No MARÍA-7 AMB Questionnaire MARÍA-7 Date MARÍA - 7 assessed: 06/17/24 Feeling nervous, anxious, or on edge: 1 = Several days Not being able to stop or control worryin = Not at all Worrying too much about different things: 1 = Several days Trouble relaxin = Several days Being so restless that it is hard to sit still: 1 = Several days Becoming easily annoyed or irritable: 1 = Several days Feeling afraid as if something awful might happen: 0 = Not at all Total MARÍA-7 score (0-4 normal; 5-9 mild; 10-14 moderate; 15-21 severe): 5 Source: Developed by Drs. Greg Lazo, Celi Pickard, Jason Liu and colleagues, with an educational juan from [employer]. MARÍA-7 Assessment Billing MARÍA-7 Assessment Tool: MARÍA-7 Assessment 04771 Review of Systems Const All systems reviewed & are unremarkable except as noted in HPI and below Card Denies chest pain at rest, Denies chest pain with activity, Denies edema, Denies irregular heart rhythm, Denies claudication, Denies dyspnea, Denies dyspnea on exertion, Denies orthopnea, Denies paroxysmal nocturnal dyspnea and Denies slow heart rate Resp Denies cough, Denies dyspnea and Denies dyspnea on exertion GI Denies abdominal pain, Denies change in bowel habits, Denies excessive flatus, Denies nausea and Denies vomiting Denies urinary incontinence, Denies urinary hesitancy and Denies urinary urgency Musc Denies atrophy, Denies deformity and Denies limited range of motion Skin/Breast Denies bleeding lesions, Denies changing lesions and Denies rash Physical exam (Primary Care) Vital Signs: Last Vital Signs BP 130/70 06/17/24 14:39 BMI result Body Mass Index 25.0 Tobacco/Smoking Status: Tobacco use Status Tobacco use date assessed 06/17/24 06/17/24 14:44 Patient Tobacco Use Status Never used Tobacco 06/17/24 14:44 e-Cigarette/Vaping Use Never Used 06/17/24 14:44 PHQ-9: PHQ-9 Score PHQ-9: Total score 1 06/17/24 14:44 Depression Screening Interpretation: Negative Thrive Assessment: Date of Thrive Assessment Date Thrive assessed 06/17/24 06/17/24 14:44 Currently or been in a relationship where the following occur: No concerns reported [facility] Head: Yes normal to inspection, Yes normocephalic and Yes atraumatic Ears: external ears normal Eyes General: appearance normal, both eyes and all related structures Eyelids: Yes eyelids normal Conjunctivae: conjunctivae normal Neck Neck: Yes normal visual inspection and Yes supple Resp Effort & Inspection: normal respiratory effort Auscultation: clear to auscultation bilaterally Cardio Jugular venous distension: no JVD Rate: regular rate Rhythm: regular rhythm Heart sounds: S1 normal heart sound present and S2 normal heart sound present GI Inspection: Yes normal to inspection Palpation (GI): Soft to palpation and nontender Auscultation: normal bowel sounds Skin General skin exam: no rashes or lesions noted Neuro General: no focal motor deficits Extrem General: Yes full ROM Psych Appearance: grossly normal Coding Level of Care Code Est Pt Level 3 (53949) Est Pt Prev Care 40-64y(18814) Diagnoses Physical exam Z00.00 Chronic idiopathic constipation K59.04 Bladder spasms N32.89 Additional Codes PHQ-9 - 76481 - PHQ-9 Billing: Yes ([id number]) MARÍA-7 Assessment Billing - MARÍA-7 Assessment Tool: MARÍA-7 Assessment 86543 ([id number]) Time Spent (min) 33 Assessment & Plan Assessment & Plan (1) Physical exam: Code(s): Z00.00 - Encounter for general adult medical examination without abnormal findings Category: Medical (2) Chronic idiopathic constipation: Code(s): K59.04 - Chronic idiopathic constipation Category: Medical (3) Bladder spasms: Code(s): N32.89 - Other specified disorders of bladder Category: Medical Plan The treatment strategy emphasizes managing chronic pain and associated medical concerns. Ajovy and Nurtec address migraine episodes, while loratadine and inhal er therapy manage seasonal allergies. Consider gastroenterology referral for constipation treatment alternatives. Monitoring for postoperative vaginal cuff recovery and bladder spasms involves potential urology-gynaecology evaluation upon referral approval. Patient was informed and verbally consented to the use of an ambient scribe for clinic note documentation during this visit. During the visit, I advised the patient on the ongoing management of migraines and seasonal allergies, alongside the importance of routine monitoring for any adverse symptoms from medications, highlighting adjustments should intolerances occur. We discussed the necessity for potential referral to both gastroenterology for alternative treatments regarding chronic constipation and a urology-gynaecologist for evaluating bladder-related issues. Continuing management of postoperative recovery processes and their regular assessments were encouraged. Orders: Referrals Gastroenterology Referral K59.04 - Chronic idiopathic constipation Urogynecology Referral N32.89 - Other specified disorders of bladder Patient Instructions: - Continue all prescribed medications as directed for migraine and allergies. - Report any adverse effects or intolerances to current medications. - Seek advice and explore a potential referral regarding chronic constipation and bladder issues. - Follow up on appointments to ensure effective postoperative recovery.
[2024-06-17 14:39] VITALS: BP 130/70; BMI 25.0
== END 2024-06-17 15:03 | disposition home or self-care (01) ==
LOC: HO.HMCH 14:20
PROVIDERS: PCP Internal Medicine; Visit Provider Internal Medicine
DX: Z00.00 Encounter for general adult medical examination without abnormal findings (principal); K59.04 Chronic idiopathic constipation; N32.89 Other specified disorders of bladder

== ENCOUNTER → 2024-06-17 14:20 | Outpatient (BNVA) | payer BC, SELFPAY | PROVIDERS: PCP Internal Medicine; Visit Provider Internal Medicine | DX: Z00.00 Encounter for general adult medical examination without abnormal findings (principal); K59.04 Chronic idiopathic constipation; N32.89 Other specified disorders of bladder | CPT/HCPCS: 96127 ==

== ENCOUNTER → 2024-06-18 11:05 | Outpatient (REF) | payer BC, SELFPAY ==
--- NOTE | 2024-06-18 11:09 | HM_ITS ---
Cardiac event monitor Indication: Cerebral infarction Technique: Patient was hooked up with cardiac event monitor from 06/19/2019 [id number] for total period of 30 days. Total wear time was 19.8 days Findings: Baseline was normal sinus rhythm with average heart of 67 beats per minute with lowest heart rate of 50 beats per minute sinus bradycardia and fastest heart rate of 150 beats per minute sinus tachycardia. There were rare PACs noted. No sustained atrial fibrillation noted. No significant pauses or av conduction abnormality noted. Patient marked the counter 2 times without any symptoms correlating with sinus rhythm. Conclusion: 1. Baseline was normal sinus rhythm without significant pauses 2. Rare PACs noted without sustained atrial fibrillation 3. Patient marked 2 events correlated with sinus rhythm MTDD
== END ==
LOC: HO.CARD 11:05
PROVIDERS: PCP Internal Medicine; Visit Provider Internal Medicine Cardiovascular Disease
DX: I63.9 Cerebral infarction, unspecified (principal); I49.1 Atrial premature depolarization
CPT/HCPCS: 93270

== ENCOUNTER 2024-06-18 12:24 | Day surgery (SDC) | payer BC, SELFPAY ==
[2024-06-16 10:18] VITALS: BMI 25.0
[2024-06-18 12:41] VITALS: BMI 25.1
[2024-06-18 12:59] VITALS: BP 110/68; PULSE 61; RESP 16; TEMP 36.7; O2SAT 98
--- NOTE | 2024-06-18 13:11 | CA_ITS ---
Transesophageal Echocardiogram Patient (Last, First, Middle): Priscilla Eastman, Gender: Female Date of : 1980 Age: 43 Procedure Date: 06/18/2024 Procedure Type: Transesophageal Echocardiogram Location: OP Height: 160.02 cm Weight: 63.96 kg BSA: 1.67 m2 Heart Rate: 89 bpm BP: 121 / 72 mmHg Director Radio: SB/RC Referring MD: Epifanio Shook MD Symptoms: I63.9 - Cerebral infarction, unspecified Conclusion: ??? 1. Small tunneled PFO noted 2. Normal LV systolic and diastolic function 3. Normal cardiac valvular structure and Dopplers 4. No intracardiac, thrombi, masses, vegetations 5. Normal aorta 6. Normal pericardium Findings Procedure Information Consent was obtained prior to the procedure. Pre ROCIO oral cavity was checked and revealed no overcrowding. The adult 3D probe was passed with no difficulty. This was a technically good study. Left Ventricle Normal left ventricular size, thickness, and systolic function. The visually estimated ejection fraction is between 60-65%. Diastolic function is normal for age. There is no evidence of a mass in the left ventricle. Right Ventricle Normal right ventricular cavity size and systolic function. There is no evidence of mass in the right ventricle. Atria Both atria are normal in size. Contrast study for right to left shunting is mildly positive. Patent foramen ovale detected using by color Doppler and contrast. There is no evidence of thrombus or mass in the left atrium. the left upper, right upper and right lower pulmonary veins drain normally into the left atrium. 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 The left atrial appendage was identified multiple views without any thrombus or masses. The left atrial appendage ejection velocities within normal limits. There is no evidence of thrombus or mass in the right atrium. IVC and SVC drain normally into the right atrium. Small eustachian valve is noted at the junction. Aortic Valve Normal aortic valve structure and function. There is no evidence of a mass on the aortic valve. Mitral Valve Normal mitral valve structure and function. There is no mitral valve prolapse. There is trace mitral valve regurgitation. There is no mitral valve stenosis. There is no mass noted on the mitral valve. Pulmonic Valve The pulmonic valve is normal. There is no mass noted on the pulmonic valve. Tricuspid Valve Normal tricuspid valve structure. There is trace tricuspid valve regurgitation. There is no evidence of a mass on the tricuspid valve. Tricuspid regurgitation envelope is inadequate for calculation of right ventricular systolic pressure. Great Vessels All visible segments of the aorta are normal in size. The visualized portions of the pulmonary artery and branches are normal. Venous The inferior vena cava is normal in size and collapses greater than 50% with inspiration. Pericardium/Pleural There is no evidence of pericardial effusion. Prior Study Comparison No prior study available for comparison. Updated by Epifanio Shook on 03:51 PM with Status of Final Epifanio Shook MD electronically signed on 06/19/2024 3:51:43 PM with status of Final
[2024-06-18] MEDS: Lactated Ringers 1,000 ML 50 ML IVCONT (13:12)
--- NOTE | 2024-06-18 13:28 | MHC.SHP ---
Pre-Procedural Eval Section A - 24 Hr Update-Section A only Date of Service: 06/18/24 The patient is an INPATIENT: No Changes since office visit: Yes Patient answered all questions; No Cold of Flu in the past 2 weeks, No New Medical Problems and No Changes in Medication The patient has been examined within 24 hours of the surgical procedure. The History & Physical has been completed within 30 days and I have reviewed it.: Yes Section B - Complete if H&P > 30 days Chief Complaint: Cerebral infarction, unspecified Allergies: Allergies Allergy/AdvReac Type Severity Reaction Status Date / Time sumatriptan Allergy Unknown inadequate Verified 06/17/24 14:50 response adhesive tape AdvReac Severe rash Verified 06/17/24 14:50 SEASONAL ALLERGIES Allergy Unknown UNKNOWN Uncoded 06/17/24 14:50 Plan I have reviewed the history and physical and performed a pertinent physical examination on my patient. No changes have occurred unless specified. Time Spent With Patient Time: Total time managing care of this patient today ____ minutes.
--- NOTE | 2024-06-18 14:00 | HO.ANESPROP2 ---
HPI - Anesthesia Eval Consult details Narrative: 43 yo F presenting for ROCIO with bubble study PMFSH Active Problems Active Problems: All Active Problems Chronic idiopathic constipation (Acute) Low ferritin level (Acute) Thyroid nodule (Acute) Adnexal mass (Acute) Adnexal fullness (Acute) Well woman exam (Acute) Screening for cervical cancer (Acute) Fatigue (Acute) Sleep difficulties (Acute) Snoring (Acute) Migraine with aura (Acute) Cerebellar stroke (Acute) Persistent headaches (Acute) Right hand pain (Acute) Mild asthma (Acute) Insomnia (Acute) Migraines (Acute) Immunization due (Acute) MARÍA (generalized anxiety disorder) (Acute) Chronic UTI (urinary tract infection) (Acute) Pyuria (Acute) Palpitations (Acute) Lower back pain (Acute) Bladder spasms (Acute) Physical exam (Acute) Rash (Acute) Impaired glucose tolerance (Acute) Pre-op evaluation (Acute) Polyarthralgia (Acute) PVCs (premature ventricular contractions) (Acute) Past Medical History Medical History (Updated 06/17/24 @ 15:03 by Gilda Valenzuela MD) Herpes zoster Bladder spasms Physical exam Rash Impaired glucose tolerance Pre-op evaluation Polyarthralgia PVCs (premature ventricular contractions) Family History Family History Mother Diabetes Pulmonary embolism Father Substance use disorder Family history of problems with anesthesia: No Surgical History Surgical History (Updated 06/18/24 @ 12:39 by Jessica Ricardo RN) History of endometrial ablation History of hysterectomy H/O oral surgery History of lumpectomy of left breast History of History of Problems with Anesthesia: No Social History Social History Housing: House Alcohol intake: current Alcohol intake frequency: holidays/special occasions only Alcohol type: beer Patient Tobacco Use Status: Never used Tobacco e-Cigarette/Vaping Use: Never Used Second Hand Smoke Exposure: No Use of substances other than those prescribed or required for medical reasons: No Advance Directives: No Advance Directives Information Provided: Yes Patient : No : No Poor oral hygiene: No service: No Current occupational status: employed Current occupational exposures/hazards: No Cognitive needs: No Hearing needs: No Vision needs: Yes Meds Allergies Allergy/AdvReac Type Severity Reaction Status Date / Time sumatriptan Allergy Unknown inadequate Verified 06/17/24 14:50 response adhesive tape AdvReac Severe rash Verified 06/17/24 14:50 SEASONAL ALLERGIES Allergy Unknown UNKNOWN Uncoded 06/17/24 14:50 Active Medications: Current Medications Lactated Ringer's (Lr) 1,000 mls @ 50 mls/hr IVCONT .Q20H RENATA Last Admin: 06/18/24 13:12 Dose: 50 mls/hr Home Medications ?Medication ?Instructions ?Recorded ?Confirmed ?Last Taken ?Type zolpidem 10 mg tablet 10 mg PO BEDTIME PRN 02/09/20 06/17/24 Unknown History albuterol sulfate 90 mcg/actuation inhalation 08/09/21 06/17/24 Unknown History aerosol inhaler cetirizine 10 mg tablet 10 mg PO DAILY 08/09/21 06/17/24 Unknown History pregabalin 150 mg capsule 150 mg PO TID 08/09/21 06/18/24 06/18/24 History ibuprofen 600 mg tablet 600 mg PO Q6H PRN 01/30/24 06/17/24 Unknown History Exam Exam Date and Time: 06/18/24 1400 Height,Weight and Vital Signs: Height 5 ft 3 in Weight 64.2 kg Last Vital Signs Temp 98.0 F 06/18/24 12:59 Pulse 61 06/18/24 12:59 Resp 16 06/18/24 12:59 BP 110/68 06/18/24 12:59 Pulse Ox 98 06/18/24 12:59 O2 Del Method Room Air 06/18/24 12:59 Airway Mallampati Class: I TM Dist: >3cm Neck ROM: Full Loose/Missing/Broken Teeth: No (patient denies any loose or broken teeth) Heart: S1S2 Lungs: CTAB Assessment and Plan Assessment Anesthesia Assessment: Anesthesia Plan Discussed and Chart Reviewed Final Anesthetic Review Family History of Problems with Anesthesia: No History of Problems with Anesthesia: No NPO: Yes ASA Class: II Final Preanesthetic Review: No Changes in Pt Med Stat, Meds/Allgs Chart Reviewed, Consent Obtained/Reviewed and Anes Risks/Benef Reviewed Patient Risk: Low Procedure Risk: Low Anesthetic Plan Anesthetic Plan: MAC: and Agree w/ Assess. and Plan Disposition: Standard PACU
[2024-06-18 14:47] VITALS: BP 98/60; PULSE 67; RESP 16; TEMP 36.3; O2SAT 97
[2024-06-18 15:02] VITALS: BP 115/68; PULSE 64; RESP 16; TEMP 36.1; O2SAT 99
== END 2024-06-18 16:04 | disposition home or self-care (01) ==
PROVIDERS: PCP Internal Medicine; Visit Provider Internal Medicine Cardiovascular Disease
PROC: (CPT 93312; principal; 2024-06-18 14:00)
DX: I63.9 Cerebral infarction, unspecified (principal); I49.3 Ventricular premature depolarization; G43.909 Migraine, unspecified, not intractable, without status migrainosus; N32.89 Other specified disorders of bladder; R73.02 Impaired glucose tolerance (oral); R21 Rash and other nonspecific skin eruption; J30.2 Other seasonal allergic rhinitis; Z79.1 Long term (current) use of non-steroidal anti-inflammatories (NSAID); Z79.82 Long term (current) use of aspirin; Z79.899 Other long term (current) drug therapy; Z88.8 Allergy status to other drugs, medicaments and biological substances; Z98.890 Other specified postprocedural states
CPT/HCPCS: 93312; J2003; J2704

== ENCOUNTER → 2024-06-18 13:11 | Outpatient (BNV) | payer BC, SELFPAY | PROVIDERS: PCP Internal Medicine; Visit Provider Internal Medicine Cardiovascular Disease | DX: Q21.8 Other congenital malformations of cardiac septa (principal); Q21.11 Secundum atrial septal defect; Q21.12 Patent foramen ovale; I25.3 Aneurysm of heart | CPT/HCPCS: 76376; 93315; 93320; 93325 ==

== ENCOUNTER 2024-07-21 12:53 | Outpatient (REF) | payer BC, SELFPAY | END 2024-07-21 12:54 | disposition home or self-care (01) | LOC: HO.MAMMO 12:53 | PROVIDERS: PCP Internal Medicine; Visit Provider Internal Medicine | DX: Z12.31 Encounter for screening mammogram for malignant neoplasm of breast (principal) | CPT/HCPCS: 77063; 77067 ==

== ENCOUNTER → 2024-07-21 13:00 | Outpatient (BNV) | payer BC, SELFPAY | PROVIDERS: PCP Internal Medicine; Visit Provider Internal Medicine | DX: Z12.31 Encounter for screening mammogram for malignant neoplasm of breast (principal) | CPT/HCPCS: 77063; 77067 ==

== ENCOUNTER 2024-07-31 08:49 | Outpatient (AMB) | payer BC, SELFPAY ==
--- NOTE | 2024-07-31 08:53 | MHC.OFFVIS ---
Vital Signs 07/31/24 08:54 Height 5 ft 3 in Weight 144 lb BMI 25.5 BP 124/78 Blood Pressure Location Lt brachial Pulse 58 Pulse Source Pulse Oximeter Pulse Oximetry (%) 99 Oxygen Delivery Method Room Air Intake Visit Reasons: Follow Up 6mo Intake Note: Patient presents 6 month follow up for migraines/sleep difficulties. Tip Finisher Required: No Accompanied by: Self / Same As Patient Allergies sumatriptan Allergy (Unknown, Verified 07/31/24 09:01) inadequate response adhesive tape Adverse Reaction (Severe, Verified 07/31/24 09:01) rash SEASONAL ALLERGIES Allergy (Unknown, Uncoded 06/17/24 14:50) UNKNOWN HPI Comments Details: 43-yr-old female presents for f/u visit of migraine w/ aura and h/o incidentally found right cerebellar infarct. Since the last visit, patient has seen Cardiology in undergone further cardiac workup, including ROCIO which was notable for a small PFO and a 30 day Holter which showed rare PACs with overall NSR. Patient reports she has been referred to [facility] interventional cardiology. February lipid panel, shows mildly elevated total cholesterol 213 and LDL 127, with normal triglycerides 144 and HDL 58. She is compliant with aspirin and propranolol ER 80 mg- states she is tolerating this well. However does not note that at time she has orthostatic (in more rarely when walking) not right and space dizziness, like the floor is moving underneath her. Pt reports she has started Ajovy, and tolerating it well. Since starting Ajovy, she has not had a moderate to severe migraine. States she has received the Nurtec, but has not needed to use it. However, has a mild headache a/w photophobia, nausea 2-3 x's per week. Interval ferritin level was 29, decreased from previous at 55. Patient notes that she stopped oral iron, as it was causing bothersome GI discomfort. Patient denies any bothersome restless leg symptoms. Occasionally have some hip pain- on pregabalin. Baseline headache characteristics: Prodrome symptoms: none Aura: Left or right eye but then in both eyes. Sees a dot, transforms into a C shape, becomes zagged, and begins to move, and loses her bilateral peripheral vision. This usually lasts 20 minutes- if longer will be a/w a severe JO. This a/w nausea and sickness. When a/w headache the headache is more severe. The aura w/o the headache occurs once every other week or so. Headache: Mod-Severe Throbbing pain in crown of head. Stabbing pain behind moses eyes. A/w Photophobia, phonophobia, nausea, not right in space dizziness, difficulty concentrating, word finding difficulties, fatigue, right or left watery eye- also has dry eye. Occasional slurred speech. Once (yrs ago)- right facial droop and numbness. Postdrome: Lingering symptoms. [facility] Medical History (Updated 07/31/24 @ 18:11 by JALEEL Lopez) Migraines Herpes zoster Bladder spasms Physical exam Rash Impaired glucose tolerance Pre-op evaluation Polyarthralgia PVCs (premature ventricular contractions) Surgical History History of endometrial ablation History of hysterectomy H/O oral surgery History of lumpectomy of left breast History of Family History Mother Diabetes Pulmonary embolism Father Substance use disorder Social History Housing: House Alcohol intake: current Alcohol intake frequency: holidays/special occasions only Alcohol type: beer Patient Tobacco Use Status: Never used Tobacco e-Cigarette/Vaping Use: Never Used Second Hand Smoke Exposure: No service: No Current occupational status: employed Current occupational exposures/hazards: No Cognitive needs: No Hearing needs: No Vision needs: Yes Physical Exam Vital Signs: Last Vital Signs Pulse 58 07/31/24 08:54 BP 124/78 07/31/24 08:54 Pulse Ox 99 07/31/24 08:54 Oxygen Delivery Method Room Air 07/31/24 08:54 BMI result Body Mass Index 25.5 Results Reviewed Results Reviewed: 02/08/24 10:09 Ferritin 29 Triglycerides 144 Cholesterol 213 H LDL Cholesterol, Calc 127 H HDL Cholesterol 58 06/18/2024, Transesophageal Echocardiogram: Conclusion: ??? 1. Small tunneled PFO noted 2. Normal LV systolic and diastolic function 3. Normal cardiac valvular structure and Dopplers 4. No intracardiac, thrombi, masses, vegetations 5. Normal aorta 6. Normal pericardium 06/18/2024, 30 day Holter monitor Conclusion: 1. Baseline was normal sinus rhythm without significant pauses 2. Rare PACs noted without sustained atrial fibrillation 3. Patient marked 2 events correlated with sinus rhythm HST- no evidence of sleep apnea, AHI 0.1/hr w/ O2 emperatriz 90%, average SpO2 94%. CT/CT head neck 1. Unchanged chronic anterior inferior lateral right cerebellar infarction. 2. No intracranial hemorrhage or skull fracture is seen. 3. No evidence of space occupying or enhancing intracranial lesion could be found. 4. The current plain CT scan of the brain shows no diagnostic evidence of acute cerebral infarction. CT/CT angio head 1. Normal CT angiogram of the brain. 2. No focal cerebral arterial lesion or significant arterial stenosis is seen. CT/CT angio neck 1. Normal CT angiogram of the neck. No evidence of significant carotid stenosis. 2. Patent bilateral vertebral arteries with left-sided dominance. Assessment & Plan Assessment & Plan (1) Migraine without aura: Code(s): G43.009 - Migraine without aura, not intractable, without status migrainosus Category: Medical Qualifiers: Status migrainosus presence: without status migrainosus Intractability: not intractable Qualified Code(s): G43.009 - Migraine without aura, not intractable, without status migrainosus (2) Migraine with aura: Code(s): G43.109 - Migraine with aura, not intractable, without status migrainosus Category: Medical Qualifiers: Status migrainosus presence: without status migrainosus Intractability: not intractable Qualified Code(s): G43.109 - Migraine with aura, not intractable, without status migrainosus (3) Cerebellar stroke: Comment: Right Code(s): I63.9 - Cerebral infarction, unspecified Category: Medical Plan For history of cerebellar infarcts seen on brain MRI: Continue aspirin 81 mg q.h.s. Continue propranolol ER 80 mg daily. For orthostatic dizziness: Advised to stand slowly. take at least 64 oz of fluid per day, with 16- 24 oz of an electrolyte replacement beverage, such as Gatorade or liquid IV. Interval ROCIO: PFO HST- reassuring study results w/o evidence of sleep apnea w/ AHI 0.1/hr w/ O2 emperatriz 90%, average SpO2 94%. Consider f/u in-lab PSG if pt develops worrisome sleep s/s. CT/CTA head neck- stable chronic anterior inferior lateral right cerebellar infarction. No evidence of intracranial vascular aneurysm, stenosis. No evidence of extracranial carotid vascular stenosis or aneurysm. Patent bilateral vertebral arteries with left-sided dominance- normal variant. Follow-up with cardiology as scheduled. For RLS: Hold OTC ferrous sulfate w/ vit C qod- not tolerated, and RLS symptoms have improved. If s/s reoccur, consider referral to hematology for IV iron infusion. For overall headache management: Optimize good self-care, including but not limited to maintaining a healthy diet, adequate fluid intake, adequate sleep, and engaging in regular physical activity. For headache triggers: Track headaches, especially after any treatment regimen changes. Migraine [employer] is one of many headache tracking apps. For acute headache treatment: Discussed importance of taking acute medications at the first sign of headache. Trial Nurtec ODT 75 mg q.d. p.r.n.- try taking at onset of mild migraine. Hold Fioricet to allow for adequate Nurtec trial. Previous acute migraine medication trials: Rizatriptan w/ Ibuprofen- not always effective and makes her tiredness Acute migraine medication contraindications: All triptans due to history of cerebellar infarct For headache prevention medication: Continue propranolol ER 80 mg q.d.- used for PVCs. Continue Pregabalin for fibromyaligia. Continue Ajovy 225 mg subcu q.month Previous migraine prevention medication trials: Amitriptyline- ineffective and caused GI upset. Gabapentin and Duloxetine- ineffective for JO or fibromyalgia- used for fibromyalgia. Migraine prevention medication contraindications: None at this time Pt to follow-up in 6 months or sooner prn. Coding Level of Care Code Est Pt Level 4 (19351) Diagnoses Migraine without aura and without status migrainosus, not intractable G43.009 Status migrainosus presence: without status migrainosus Intractability: not intractable Migraine with aura and without status migrainosus, not intractable G43.109 Status migrainosus presence: without status migrainosus Intractability: not intractable Cerebellar stroke I63.9
[2024-07-31 08:54] VITALS: BP 124/78; PULSE 58; O2SAT 99; BMI 25.5
== END 2024-07-31 09:38 | disposition home or self-care (01) ==
LOC: HO.HSMS 08:49
PROVIDERS: PCP Internal Medicine; Visit Provider Nurse Practitioner Family
DX: G43.009 Migraine without aura, not intractable, without status migrainosus (principal); G43.109 Migraine with aura, not intractable, without status migrainosus; I69.30 Unspecified sequelae of cerebral infarction
CPT/HCPCS: 99214

== ENCOUNTER → 2024-07-31 08:49 | Outpatient (BNVA) | payer BC, SELFPAY | PROVIDERS: PCP Internal Medicine; Visit Provider Nurse Practitioner Family ==

== ENCOUNTER 2024-08-05 10:42 | Outpatient (AMB) | payer BC, SELFPAY ==
[2024-08-05 10:49] VITALS: BP 120/80; PULSE 64; BMI 25.0
--- NOTE | 2024-08-05 10:49 | MHC.OFFVIS ---
Vital Signs 08/05/24 10:49 Height 5 ft 3 in Weight 141 lb 1.533 oz BMI 25.0 BP 120/80 Blood Pressure Location Lt brachial Position Sitting Pulse 64 Intake Visit Reasons: s/p Escobar event labs Intake Note: Follow-up ESCOBAR and event monitor feeling ok seeing Dr Mendez tomorrow Supervisor Die Casting Required: No Allergies sumatriptan Allergy (Unknown, Verified 07/31/24 09:01) inadequate response adhesive tape Adverse Reaction (Severe, Verified 07/31/24 09:01) rash SEASONAL ALLERGIES Allergy (Unknown, Uncoded 06/17/24 14:50) UNKNOWN Medication List - Last Reconciled 08/05/24 by Epifanio Shook MD albuterol sulfate 90 mcg/actuation inhalation aspirin 81 mg PO DAILY 30 days cetirizine 10 mg PO DAILY fremanezumab-vfrm (Ajovy) 225 mg (1.5 mL) subcut ONCE 30 days ibuprofen 600 mg PO Q6H PRN pregabalin 150 mg PO TID propranolol ER 80 mg PO DAILY rimegepant (Nurtec ODT) 75 mg PO ONCE PRN 30 days MDD 1 tab zolpidem 10 mg PO BEDTIME PRN HPI Comments Details: Priscilla comes for follow-up. She is seeing Dr. Mendez tomorrow to discuss about PFO closure. Her blood work does not show any evidence of hypercoagulable state. Monitor does not show any evidence of AFib. She has no new neurologic symptoms. No significant palpitations. [facility] Medical History Migraines Herpes zoster Bladder spasms Physical exam Rash Impaired glucose tolerance Pre-op evaluation Polyarthralgia PVCs (premature ventricular contractions) Surgical History History of endometrial ablation History of hysterectomy H/O oral surgery History of lumpectomy of left breast History of Family History Mother Diabetes Pulmonary embolism Father Substance use disorder Social History Housing: House Alcohol intake: current Alcohol intake frequency: holidays/special occasions only Alcohol type: beer Patient Tobacco Use Status: Never used Tobacco e-Cigarette/Vaping Use: Never Used Second Hand Smoke Exposure: No service: No Current occupational status: employed Current occupational exposures/hazards: No Cognitive needs: No Hearing needs: No Vision needs: Yes Review of Systems Const Denies chills, Denies fatigue, Denies fever(s), Denies frequent falls, Denies weakness, Denies weight gain and Denies weight loss ENT Denies dizziness Card Denies chest pain, Denies leg edema, Denies lightheadedness, Denies palpitations, Denies dyspnea, Denies dyspnea on exertion, Denies orthopnea and Denies other (loss of consciousness) Resp Denies cough, Denies dyspnea and Denies dyspnea on exertion GI Denies hematochezia and Denies change in stool character Musc Denies abnormal gait, Denies muscle weakness, Denies numbness, Denies radiating pain into limb and Denies tingling Neuro Denies abnormal gait, Denies dizziness, Denies frequent falls, Denies numbness, Denies tingling and Denies weakness Endo Denies fatigue and Denies palpitations Physical Exam Vital Signs: Last Vital Signs Pulse 64 08/05/24 10:49 BP 120/80 08/05/24 10:49 BMI result Body Mass Index 25.0 Const General: cooperative, comfortable and awake Nutritional Appearance: average body habitus Orientation/consciousness: patient oriented x3 Limitations: no limitations Neck Neck: Yes trachea midline, Yes supple and Yes no JVD Chest Chest palpation & inspection: normal inspection of the chest Resp Effort & Inspection: normal respiratory effort Auscultation: clear to auscultation bilaterally Cardio Jugular venous distension: no JVD Palpation: normal PMI Rate: regular rate Rhythm: regular rhythm Heart sounds: S1 normal heart sound present and S2 normal heart sound present GI Auscultation: normal bowel sounds Skin General skin exam: no rashes or lesions noted Neuro General: patient oriented x3 and no focal motor deficits Extrem General: Yes no clubbing, cyanosis or edema Psych Appearance: grossly normal Office Procedures EKG Details: EKG shows normal sinus rhythm normal EKG [id number], Complete Assessment & Plan Assessment & Plan (1) Cerebellar stroke: Comment: Right Code(s): I63.9 - Cerebral infarction, unspecified Category: Medical Plan: Cerebellar stroke in his young woman without any obvious etiology with presence of PFO noted on ESCOBAR. Plan to refer for PFO closure. RoPE score is 72 and I think PFO closure will reduce her risk of future embolic events. This was discussed with her in details. Pathophysiology of PFO and stroke related to PFO was discussed. Further treatment as per the PFO closure team. Continue aspirin therapy for now. (2) PVCs (premature ventricular contractions): Code(s): I49.3 - Ventricular premature depolarization Category: Medical Plan: Prior history of PVCs which have been suppressed on propranolol therapy. Continue the same. Discussed about pathophysiology of PVC and no relation to PFO. Continue propranolol. Avoidance of stimulants was discussed. Stress mitigation strategies were discussed. Will follow up in the clinic in 6 months time, sooner p.r.n.. Thank you for allowing me to partake in her care Coding Level of Care Code Est Pt Level 4 (39695) Complex EM visit Add On G2211 Diagnoses Cerebellar stroke I63.9 PVCs (premature ventricular contractions) I49.3 CPT Codes EKG - CPT: [id number], Complete ([id number])
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
== END 2024-08-05 11:10 | disposition home or self-care (01) ==
LOC: HO.HCS 10:42
PROVIDERS: PCP Internal Medicine; Visit Provider Internal Medicine Cardiovascular Disease
DX: I63.9 Cerebral infarction, unspecified (principal); I49.3 Ventricular premature depolarization
CPT/HCPCS: 93010; 99214

== ENCOUNTER 2024-08-05 10:42 | Outpatient (REF) | payer BC, SELFPAY ==
--- NOTE | ~2024-08-05 | XR_ITS ---
EXAMINATION: XR HIP, RIGHT CLINICAL INFORMATION: right hip pain, eval for DJD COMPARISON: None available. TECHNIQUE: Two views of the right hip and AP pelvis. FINDINGS: Right hip joint space is preserved. There is no sclerosis or osteophyte formation. No abnormality is noted in the left hip. 3 symphysis and SI joints are unremarkable. XR/XR hip RT w [id number] IMPRESSION: Unremarkable right hip. Electronically signed by: Edouard Ceron MD 08/05/2024 02:20 PM EDT
== END 2024-08-05 10:43 | disposition home or self-care (01) ==
LOC: HO.XRAY 10:42
PROVIDERS: Absent Provider Physical Medicine & Rehabilitation; PCP Internal Medicine; Visit Provider Internal Medicine Cardiovascular Disease
DX: M25.551 Pain in right hip (principal); I49.3 Ventricular premature depolarization
CPT/HCPCS: 73502; 93005

== ENCOUNTER → 2024-08-05 11:40 | Outpatient (BNV) | payer BC, SELFPAY | PROVIDERS: Absent Provider Physical Medicine & Rehabilitation; PCP Internal Medicine; Visit Provider Radiology Diagnostic Radiology | DX: M25.551 Pain in right hip (principal); M16.11 Unilateral primary osteoarthritis, right hip | CPT/HCPCS: 73502 ==

== ENCOUNTER 2024-08-25 15:08 | Outpatient (REF) | payer BC, SELFPAY ==
[2024-08-26 13:21] LABS: Bacterial Vaginosis PCR POSITIVE (Negative); Candida Group PCR NOT DETECTED (Not Detect); Candida glab krusei PCR NOT DETECTED (Not Detect); Trichomonas vaginalis PCR NOT DETECTED (Not Detect)
== END 2024-08-25 15:09 | disposition home or self-care (01) ==
LOC: HO.LNP 15:08
PROVIDERS: PCP Internal Medicine; Visit Provider Obstetrics & Gynecology
DX: Z01.419 Encounter for gynecological examination (general) (routine) without abnormal findings (principal); N76.0 Acute vaginitis; B96.89 Other specified bacterial agents as the cause of diseases classified elsewhere
CPT/HCPCS: 81515

== ENCOUNTER 2024-08-25 15:08 | Outpatient (AMB) | payer BC, SELFPAY ==
--- NOTE | 2024-08-25 15:21 | A.OFFVIS_ITS ---
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 Complaining of vaginal odor Last Pap/HPV was negative in 08/26 Last Mammogram was BI-RADS 1 in 07/27 [facility] Medical History Migraines Herpes zoster Bladder spasms Physical exam Rash Impaired glucose tolerance Pre-op evaluation Polyarthralgia PVCs (premature ventricular contractions) Surgical History History of endometrial ablation History of hysterectomy H/O oral surgery History of lumpectomy of left breast History of Family History Mother Diabetes Pulmonary embolism Father Substance use disorder Social History Housing: House Alcohol intake: current Alcohol intake frequency: holidays/special occasions only Alcohol type: beer Patient Tobacco Use Status: Never used Tobacco e-Cigarette/Vaping Use: Never Used Second Hand Smoke Exposure: No service: No Current occupational status: employed Current occupational exposures/hazards: No Cognitive needs: No Hearing needs: No Vision needs: Yes Female Reproductive History Menstrual Menopause type: surgical Date of Mammogram: 07/21/24 Review of Systems Const All systems reviewed & are unremarkable except as noted in HPI and below Card Reports as per HPI and Reports no additional complaints Resp Reports as per HPI and Reports no additional complaints GI Reports as per HPI and Reports no additional complaints Reports as per HPI Physical Exam Const General: cooperative, healthy appearing and comfortable General: Yes bladder normal to palpation External Female Exam: No lesion Speculum Exam - Vagina: normal appearance of the vagina, normal vaginal discharge and not erythematous Speculum Exam - Cervix: Cervix absent Bimanual exam- vagina & uterus: bladder normal to palpation and uterus absent Bimanual Exam- Adnexa, other: Other (No masses detected) Assessment & Plan Assessment & Plan (1) Well woman exam: Code(s): Z01.419 - Encounter for gynecological examination (general) (routine) without abnormal findings Category: Medical Plan: Cotesting not indicated since the patient is status post hysterectomy with no history of abnormal Pap smear. Instructions given the patient to schedule next screening Mammogram in 07/28. Referral to GI for screening colonoscopy placed Counseled the patient about the recommended dietary allowance of 1000 mg of Calcium & 600 IU of vitamin D. The patient was instructed to perform monthly self-breast exams and to schedule an annual exam in a year; All questions answered and the patient verbalized understanding. Instructed the patient to schedule annual exam in a year (2) Bacterial vaginosis: Code(s): N76.0 - Acute vaginitis; B96.89 - Other specified bacterial agents as the cause of diseases classified elsewhere Category: Medical Plan: BV panel collected. Metronidazole gel 0.75% q.h.s. vaginally for 5 days sent to the patient's pharmacy. Instructions given the patient to call in case symptoms not improve. All questions answered, the patient verbalized understanding. Orders: Orders Bacterial Vaginosis Panel Today N89.8 - Other specified noninflammatory disorders of vagina Referrals Gastroenterology Referral Z12.11 - Encounter for screening for malignant neoplasm of colon Medications: New metronidazole 0.75%(37.5mg/5gram) 1 appful vaginal BEDTIME 37.5 grams 0RF 5 days Coding Level of Care Code Est Pt Prev Care 40-64y(04948) Diagnoses Well woman exam Z01.419 Bacterial vaginosis N76.0; B96.89
[2024-08-25 15:25] VITALS: BP 116/70; BMI 24.8
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
== END 2024-08-25 15:57 | disposition home or self-care (01) ==
LOC: HO.HWS 15:08
PROVIDERS: PCP Internal Medicine; Visit Provider Obstetrics & Gynecology
DX: Z01.419 Encounter for gynecological examination (general) (routine) without abnormal findings (principal); N76.0 Acute vaginitis; B96.89 Other specified bacterial agents as the cause of diseases classified elsewhere
CPT/HCPCS: 99213; 99396; 99459

== ENCOUNTER → 2024-11-18 08:02 | Outpatient (REF) | payer BC, SELFPAY ==
--- NOTE | 2024-11-18 08:07 | CA_ITS ---
Transthoracic Echocardiogram Patient (Last, First, Middle): Priscilla Eastman, Gender: F Date of : 1980 Age: 44 Procedure Date: 11/18/2024 Procedure Type: Transthoracic Echocardiogram Location: OP Height: 160.02 cm Weight: 63.5 kg BSA: 1.66 m2 Heart Rate: bpm BP: 116 / 70 mmHg Mask Layout Designer: MARYANA Referring MD: Epifanio Shook MD Symptoms: Q21.10 - Atrial septal defect, unspecified Study Quality: Fair, contrast ECG Rhythm: Sinus Conclusions: - The left ventricular systolic function is normal. The calculated ejection fraction is 61% by biplane method. - Atrial septal closure device noted. Bubble study negative during rest and valsalva. - No obvious valvular pathology seen on this study. Findings Procedure Information Contrast agent, definity, is being given per protocol without apparent complications. Left Ventricle Normal left ventricular cavity size. There is normal left ventricular wall thickness. The left ventricular systolic function is normal. The calculated ejection fraction is 61% by biplane method. There is no evidence of regional wall motion abnormalities. Diastolic function is normal for age. Right Ventricle Normal right ventricular cavity size and systolic function. Atria Both atria are normal in size. There is no evidence of interatrial shunt by agitated saline. Septal closure device noted. Bubble study negative during rest and valsalva. Aortic Valve There is a normal trileaflet aortic valve. There is no aortic valve stenosis. There is no aortic valve regurgitation. Mitral Valve The mitral valve appears normal. There is trace mitral valve regurgitation. There is no mitral valve stenosis. Pulmonic Valve The pulmonic valve is likely normal. Tricuspid Valve There is trace tricuspid valve regurgitation. There is no evidence of pulmonary hypertension. Great Vessels The asc aorta is normal in size. Venous The inferior vena cava is normal in size and collapses greater than 50% with inspiration. Pericardium/Pleural There is no evidence of pericardial effusion. Prior Study Comparison Changes noted compared to prior study dated: 07/25/2012. s/p PFO closure. Recommendations, Care & Conclusions No obvious valvular pathology seen on this study. Measurements 2D Linear Measurements IVSd: 0.73 0.6-0.9/0.6-1.0 cm LVIDd: 4.54 3.9-5.3/4.2-5.9 cm LVIDd Index: 2.73 2.4-3.2/2.2-3.1 cm/m2 LVIDs: 2.91 2.0-3.6 cm LVPWd: 0.79 0.7-1.1 cm LA Diam: 3.70 2.7-3.8/3.0-4.0 cm LAIDs Index: 2.23 1.5-2.3 cm/m2 LV Mass: 133.78 67-162/88-224 g LV Mass Index: 80.59 43-95/49-115 g/m2 LVOT Diam: 2.00 3.0+(-)1.3 cm 2D Systolic Function EF 4C: 62.70 >55% EF 2C: 60.40 >55% EF BiP: 60.60 >55% Mitral Valve MV Pk E: 0.83 MV PK A: 0.48 MV Decel Time: 181.00 E/A: 1.70 E'Lateral: 12.90 E'Medial: 8.92 E/E' Med: 9.30 E/E' Lat: 6.40 PHT: 53.00 MVA PHT: 4.15 Decel [place]: 4.56 Aortic Valve AoV Pk Bin: 1.16 AoV Mn Bin: 0.81 AoV VTI: 0.30 AoV Pk Grad: 5.00 Aov Mn Grad: 3.00 REMEDIOS Cont.VTI: 2.66 LVOT LVOT Pk Bin: 1.08 LVOT Mn Bin: 0.72 LVOT VTI: 0.25 LVOT Pk Grad: 5.00 LVOT Mn Grad: 2.00 LVOT Diam: 2.00 LVOT Area: 3.14 Diastolic Function MV Pk E: 0.83 MV Pk A: 0.48 E/A: 1.70 E'Medial: 8.92 E/E' Med: 9.30 E' Laterial: 12.90 E/E' Lat: 6.40 Right Ventricle TAPSE (mm): 20.40 TVS' Bin: 10.40 Tricuspid Valve TR Pk Bin: 1.93 TR Pk Grad: 15.00 RA Press: 3.00 RVSP: 18.00 Great Vessels Aorta Sinus of Valsalva: 3.43 2.0-3.[address] [place]: 3.14 1.7-3.4 cm Ao Asc: 2.80 2.1-3.4 cm Updated in Other Vendor System with Status of Final Tello Bermeo MD electronically signed on 11/20/2024 12:07:51 PM with status of Final
== END ==
LOC: HO.CARD 08:02
PROVIDERS: PCP Internal Medicine; Visit Provider Internal Medicine Cardiovascular Disease
DX: I49.3 Ventricular premature depolarization (principal); R00.2 Palpitations; Q21.10 Atrial septal defect, unspecified
CPT/HCPCS: 93242; 93306; Q9957

== ENCOUNTER → 2024-11-18 08:07 | Outpatient (BNV) | payer BC, SELFPAY | PROVIDERS: PCP Internal Medicine; Visit Provider Internal Medicine | DX: Z87.74 Personal history of (corrected) congenital malformations of heart and circulatory system (principal); Z95.818 Presence of other cardiac implants and grafts | CPT/HCPCS: 93306 ==

== ENCOUNTER 2025-01-13 13:58 | Outpatient (AMB) | payer BC, SELFPAY ==
--- NOTE | 2025-01-13 14:05 | A.OFFVIS_ITS ---
Vital Signs 01/13/25 14:06 Height 5 ft 3 in Weight 142 lb BMI 25.2 BP 116/61 Blood Pressure Location Lt brachial Position Sitting Pulse 56 Intake Visit Reasons: colo screen Intake Note: Patient new consult for 1st pre Colonoscopy screening. Patient cc: left lowerand upper abdominal pain with bloating, and between constipation and diarrhea. Denies any other GI issues. Rubber Cutter Required: No Accompanied by: Self / Same As Patient Allergies sumatriptan Allergy (Unknown, Verified 01/13/25 14:04) inadequate response adhesive tape Adverse Reaction (Severe, Verified 01/13/25 14:04) rash SEASONAL ALLERGIES Allergy (Unknown, Uncoded 08/25/24 15:25) UNKNOWN Medication List - Last Reconciled 01/13/25 by Britany Lawton CNP acetaminophen 650 mg PO Q6H PRN albuterol sulfate 90 mcg/actuation inhalation aspirin 81 mg PO DAILY 30 days cetirizine 10 mg PO DAILY fremanezumab-vfrm (Ajovy) 225 mg (1.5 mL) subcut QMONTH 90 days ibuprofen 600 mg PO Q6H PRN ibuprofen 400 mg PO Q8H metronidazole 0.75%(37.5mg/5gram) 1 appful vaginal BEDTIME 5 days pregabalin 150 mg PO TID propranolol ER 80 mg PO DAILY rimegepant (Nurtec ODT) 75 mg PO ONCE PRN 30 days MDD 1 tab zolpidem 10 mg PO BEDTIME PRN HPI HPI colo screen: Details: Patient is a 44-year-old female with PMH of migraines, 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 Referred by PCP for further evaluation of constipation Pt presents for further evaluation of longstanding constipation and routine colorectal cancer pre screening. Reports constipation >5 yrs, with bowel movements every 3?4 days, often passing hard, pellet-like stools, but occasionally experiences episodes of painful diarrhea. Describes intermittent, severe, cramping LLQ abd pain lasting 30 sec which may resolve after BM or spontaneously. Also notes bloating and increased gas, especially after consuming salads/vegetables. Reports nausea associated with severe abd pain. Previously trialed stimulant laxatives (senna) and docusate, both of which caused intense cramping, limiting use. Occasional rare heartburn. Typical appetite pattern is minimal food intake until late afternoon; dietary recall reveals high vegetable/fiber intake, low meat consumption, and frequent water/coffee. PMHx notable for migraine disorder (on monthly injectable therapy), history of stroke (silent/minor, dx ~2022), recently completed PFO closure (3?4 mo ago), and ongoing PVCs under cardiology care. On low-dose ASA for stroke prevention. No hx of GI malignancy; mother had colonic lesions of unclear etiology. Patient denies: fever/chills, vomiting, appetite changes, regurgitation, dysphasia, unintentional wt loss or melena/hematochezia. Social hx: -ETOH social use only?~3x/year -denies recreational drug use -denies nicotine dependence - family hx as below -denies personal hx of CA -tolerated anesthesia in the past without difficulty. [facility] Medical History (Updated 01/13/25 @ 15:01 by Britany Lawton CNP) Constipation Colon cancer screening Change in stool Migraines Herpes zoster Bladder spasms Physical exam Rash Impaired glucose tolerance Pre-op evaluation Polyarthralgia PVCs (premature ventricular contractions) Surgical History History of endometrial ablation History of hysterectomy H/O oral surgery History of lumpectomy of left breast History of Family History Mother Diabetes Pulmonary embolism Father Substance use disorder Social History Housing: House Alcohol intake: current Alcohol intake frequency: holidays/special occasions only Alcohol type: beer Patient Tobacco Use Status: Never used Tobacco e-Cigarette/Vaping Use: Never Used Second Hand Smoke Exposure: No service: No Current occupational status: employed Current occupational exposures/hazards: No Cognitive needs: No Hearing needs: No Vision needs: Yes Review of Systems Const Reports as per HPI ENT Reports as per HPI Card Reports as per HPI Resp Reports as per HPI GI Reports as per HPI Reports as per HPI Physical Exam Vital Signs: Last Vital Signs Pulse 56 01/13/25 14:06 BP 116/61 01/13/25 14:06 BMI result Body Mass Index 25.2 Const General: healthy appearing, no acute distress, well developed and intoxicated appearing Nutritional Appearance: average body habitus Orientation/consciousness: patient oriented x3 HEENT Head: Yes normal to inspection, Yes normocephalic and Yes atraumatic Face and sinus: Yes normal facial exam Eyes General: appearance normal, both eyes and all related structures Neck Neck: Yes normal visual inspection Resp Effort & Inspection: normal respiratory effort, able to speak in complete sentences, no tracheal deviation and symmetric chest movement Cardio Jugular venous distension: no JVD GI Inspection: Yes normal to inspection and No distended Palpation (GI): Soft to palpation, not firm, nontender and No hepatosplenomegaly present Auscultation: normal bowel sounds Neuro General: patient oriented x3 Gait exam (Neuro): Normal gait present Psych Appearance: grossly normal Mental Status: mental status grossly normal Speech and movement: Normal speech and movement present Affect: normal affect Attitude: cooperative Thought process: Normal thought process present Thought content: Normal thought content present Insight: Good insight present (Psych) Judgement: Good judgement present (Psych) Assessment & Plan Assessment & Plan (1) Colon cancer screening: Code(s): Z12.11 - Encounter for screening for malignant neoplasm of colon Category: Medical Plan: Age 44, average-risk, family hx of colonic lesions in mother (no confirmed ca). Screening indicated per guidelines. Additional Testing: - Colonoscopy - Adjust bowel prep: 2 tabs oral bisacodyl nightly x5 nights prior to standard prep, plus routine prep instructions with polyethylene glycol + Gatorade Medication Management: - Hold ASA 7 days pre-procedure (pending cardiology clearance) - Review with cardiology (ensure safe for moderate sedation) Lifestyle Recommendations: - Strict adherence to pre-procedure dietary and medication instructions (see patient education materials) - Arrange transportation day of procedure Follow-Up: - Return to office after colonoscopy for results and management plan; call or portal message with concerns or medication issues prior (2) Constipation: Code(s): K59.00 - Constipation, unspecified Category: Medical Qualifiers: Constipation type: unspecified constipation type Qualified Code(s): K59.00 - Constipation, unspecified Plan: Longstanding, alternating constipation and diarrhea with abd pain/bloating relieved by BM, symptoms present >5 yrs, fulfilling Tristin IV criteria for IBS-M. Excludes red flag features (no wt loss, bleeding, persistent vomiting). Cramping with stimulant and non-stimulant laxatives suggests need for alternative bowel regimen. Additional Testing: - Screening celiac serologies (TTG IgA, total IgA) - CRP Medication Management: - Start daily PEG 3350 (Miralax) 17 g mixed with 8 oz water - Avoid stimulant laxatives if possible - [place] stool softeners; trial only if new regimen not tolerated Lifestyle Recommendations: - Continue high fiber from preferred sources; trial low-FODMAP modifications per handout, avoiding excessive fermentable fiber if bloating severe - Encourage adequate hydration - Regular meals when feasible, physical activity as tolerated Follow-Up: - 8 wks or sooner PRN symptom escalation; earlier if unable to tolerate bowel regimen or if significant new sx develop Plan Follow-up 8 weeks or sooner as needed Time: I spent a total of 45 minutes on the date of encounter which includes: Preparing to see the patient (reviewed previous documentation, test results and medical history) Performing a medically appropriate exam and/or evaluation Ordering medications, tests, and procedures Documenting clinical information in the health record Orders: Orders Transglutaminase IgA Today R19.5 - Other fecal abnormalities C Reactive Protein Today R19.5 - Other fecal abnormalities Referrals GI Procedure Notification Z12.11 - Encounter for screening for malignant neoplasm of colon Medications: New bisacodyl Take per colonoscopy instructions 20 mg (4 x 5 mg) PO ONCE 4 tabs 0RF polyethylene glycol 3350 (Miralax) Take 17G (one cap full) daily with 8oz of water 17 grams PO DAILY 510 grams 2RF constipation 30 days polyethylene glycol 3350 (Miralax) per colonoscopy prep instructions 238 grams PO ONCE 238 grams 0RF bisacodyl Take two tablets at bedtime starting five days before colonoscopy 10 mg (2 x 5 mg) PO ONCE 10 tabs 0RF Coding Level of Care Code New Pt New Pt Level 4 (82309) Patient Type New Diagnoses Colon cancer screening Z12.11 Constipation, unspecified constipation type K59.00 Constipation type: unspecified constipation type
[2025-01-13 14:06] VITALS: BP 116/61; PULSE 56; BMI 25.2
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
--- OUTSIDE RECORDS SUMMARY | 2025-01-13 15:34 | XMS_ITS | Encounter Summary ---
Author Organization [facility] Address [address] [place] [address] Care Team Providers Care Line Assembler Aircraft Name Role Phone Gilda Rios MD Primary Care Provider [phone] Encounter Details Date Type Department Care Team (Late st Contact Info) Description 07/24/2024 Scanned Document [address] [phone] Provider, Generic Social History Tobacco Use Types Packs/Day Years Used Date Smoking Tobacco: Never Assessed Comments Unknown Sex and Gender Information Value Date Recorded Sex Assigned at Female 07/24/2024 8:20 AM EDT Legal Sex Female 6:59 PM EST Gender Identity Female 07/24/2024 8:20 AM EDT Sexual Orientation Not on file documented as of this encounter Plan of Treatment Not on file documented as of this encounter Visit Diagnoses Not on filedocumented in this encounter Care Teams Line Assembler Aircraft Relationship Specialty Start Date End Date Gilda Rios MD [address] [place] [address] PCP - General Family Medicine 07/24/24 documented as of this encounter
== END 2025-01-13 14:56 | disposition home or self-care (01) ==
LOC: HO.HGI 13:59
PROVIDERS: PCP Internal Medicine; Visit Provider Nurse Practitioner Family
DX: Z01.818 Encounter for other preprocedural examination (principal); Z12.11 Encounter for screening for malignant neoplasm of colon; K59.00 Constipation, unspecified
CPT/HCPCS: S0285

== ENCOUNTER 2025-01-23 08:33 | Outpatient (REF) | payer BC, SELFPAY ==
--- OUTSIDE RECORDS SUMMARY | 2025-01-23 08:37 | XMS_ITS | Encounter Summary ---
Author Organization [facility] Address [address] [place] [address] Care Team Providers Care Assembly Machine Operator Name Role Phone Gilda Rios MD Primary Care Provider [phone] Encounter Details Date Type Department Care Team (Late st Contact Info) Description 07/24/2024 Scanned Document [address] [phone] Provider, Generic Social History Tobacco Use Types [...] on filedocumented in this encounter Care Teams Assembly Machine Operator Relationship Specialty Start Date End Date Gilda Rios MD [address] [place] [id number] PCP - General Family Medicine 07/24/24 documented as of this encounter
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
== END 2025-01-23 08:34 | disposition home or self-care (01) ==
LOC: HO.LAB 08:33
PROVIDERS: PCP Internal Medicine; Visit Provider Nurse Practitioner Family
DX: R19.5 Other fecal abnormalities (principal)
CPT/HCPCS: 36415; 86140; 86364

== ENCOUNTER 2025-02-10 08:58 | Outpatient (AMB) | payer BC, SELFPAY ==
[2025-02-10 09:08] VITALS: BP 100/74; PULSE 56; O2SAT 99; BMI 25.9
--- NOTE | 2025-02-10 09:08 | MHC.OFFVIS ---
Vital Signs 02/10/25 09:08 Height 5 ft 3 in Weight 146 lb BMI 25.9 BP 100/74 Blood Pressure Location Lt brachial Position Sitting Pulse 56 Pulse Source Pulse Oximeter Pulse Oximetry (%) 99 Oxygen Delivery Method Room Air Intake Visit Reasons: Follow Up 6mo Intake Note: Patient presents 6 month follow up for migraines/sleep difficulties. Hat Body Sorter Required: No Accompanied by: Self / Same As Patient Allergies sumatriptan Allergy (Unknown, Verified 02/10/25 09:08) inadequate response adhesive tape Adverse Reaction (Severe, Verified 02/10/25 09:08) rash SEASONAL ALLERGIES Allergy (Unknown, Uncoded 02/10/25 09:08) UNKNOWN Medication List - Last Reconciled 02/10/25 by JALEEL Lopez acetaminophen 650 mg PO Q6H PRN albuterol sulfate 90 mcg/actuation inhalation aspirin 81 mg PO DAILY 30 days bisacodyl 20 mg (4 x 5 mg) PO ONCE bisacodyl 10 mg (2 x 5 mg) PO ONCE cetirizine 10 mg PO DAILY fremanezumab-vfrm (Ajovy) 225 mg (1.5 mL) subcut QMONTH 90 days ibuprofen 600 mg PO Q6H PRN ibuprofen 400 mg PO Q8H metronidazole 0.75%(37.5mg/5gram) 1 appful vaginal BEDTIME 5 days polyethylene glycol 3350 (Miralax) 17 grams PO DAILY 30 days polyethylene glycol 3350 (Miralax) 238 grams PO ONCE pregabalin 150 mg PO TID propranolol ER 80 mg PO DAILY rimegepant (Nurtec ODT) 75 mg PO ONCE PRN 30 days MDD 1 tab zolpidem 10 mg PO BEDTIME PRN HPI Comments Details: 44-yr-old female presents for f/u visit of migraine w/ aura and h/o incidentally found right cerebellar infarct. She underwent PFO closure in September w/o complication. F/u echocardiogram was reassuring. Shehas complteted her plavix course x's 3 months. She saw GI- who has advised her to have her routine colonoscopy. She also has noticed some increased appetite and weight gain. She reports her dizziness is much better. She is compliant w/ Propranolol and ASA. Pt reports she is having less headcahes overall- 2 migraine attacks last month And a regualr headache- once every other week And no severe migraine attacks. The Nurtec works well to prevent the severe migraine attacks. She reports her sleep has been horrible . Her previous prescriber of the pregabalin and the zolpidem stopped prescribing these- when her prescriber left. Since, she is sleeping only a few hours. Using OTC benadryl w/ some effect She is now having more restless leg symptoms- including her legs and arms. Has been having muscle cramps and BLE toe numbness/tingling- states this is chrnic. Last ferritin level was 29, decreased from previous at 55. She states she is bruising more easily. Patient notes she previously stopped oral iron, as it was causing bothersome GI discomfort. Occasionally have some hip pain- was initial indication for pregabalin. Baseline headache characteristics: Prodrome symptoms: none Aura: Left or right eye but then in both eyes. Sees a dot, transforms into a C shape, becomes zagged, and begins to move, and loses her bilateral peripheral vision. This usually lasts 20 minutes- if longer will be a/w a severe JO. This a/w nausea and sickness. When a/w headache the headache is more severe. The aura w/o the headache occurs once every other week or so. Headache: Mod-Severe Throbbing pain in crown of head. Stabbing pain behind moses eyes. A/w Photophobia, phonophobia, nausea, not right in space dizziness, difficulty concentrating, word finding difficulties, fatigue, right or left watery eye- also has dry eye. Occasional slurred speech. Once (yrs ago)- right facial droop and numbness. Postdrome: Lingering symptoms. [facility] Medical History (Updated 02/10/25 @ 10:03 by JALEEL Lopez) Vitamin D deficiency Constipation Colon cancer screening Change in stool Migraines Herpes zoster Bladder spasms Physical exam Rash Impaired glucose tolerance Pre-op evaluation Polyarthralgia PVCs (premature ventricular contractions) Surgical History (Updated 02/10/25 @ 09:33 by Maite Gallardo CMA) History of surgical closure of patent foramen ovale (PFO) History of endometrial ablation History of hysterectomy H/O oral surgery History of lumpectomy of left breast History of Family History Mother Diabetes Pulmonary embolism Father Substance use disorder Social History Housing: House Alcohol intake: current Alcohol intake frequency: holidays/special occasions only Alcohol type: beer Patient Tobacco Use Status: Never used Tobacco e-Cigarette/Vaping Use: Never Used Second Hand Smoke Exposure: No service: No Current occupational status: employed Current occupational exposures/hazards: No Cognitive needs: No Hearing needs: No Vision needs: Yes Physical Exam Vital Signs: Last Vital Signs Pulse 56 02/10/25 09:08 BP 100/74 02/10/25 09:08 Pulse Ox 99 02/10/25 09:08 Oxygen Delivery Method Room Air 02/10/25 09:08 BMI result Body Mass Index 25.9 Results Reviewed Results Reviewed: 02/08/24 10:09 Ferritin 29 Triglycerides 144 Cholesterol 213 H LDL Cholesterol, Calc 127 H HDL Cholesterol 58 06/18/2024, Transesophageal Echocardiogram: Conclusion: ??? 1. Small tunneled PFO noted 2. Normal LV systolic and diastolic function 3. Normal cardiac valvular structure and Dopplers 4. No intracardiac, thrombi, masses, vegetations 5. Normal aorta 6. Normal pericardium 06/18/2024, 30 day Holter monitor Conclusion: 1. Baseline was normal sinus rhythm without significant pauses 2. Rare PACs noted without sustained atrial fibrillation 3. Patient marked 2 events correlated with sinus rhythm HST- no evidence of sleep apnea, AHI 0.1/hr w/ O2 emperatriz 90%, average SpO2 94%. CT/CT head neck 1. Unchanged chronic anterior inferior lateral right cerebellar infarction. 2. No intracranial hemorrhage or skull fracture is seen. 3. No evidence of space occupying or enhancing intracranial lesion could be found. 4. The current plain CT scan of the brain shows no diagnostic evidence of acute cerebral infarction. CT/CT angio head 1. Normal CT angiogram of the brain. 2. No focal cerebral arterial lesion or significant arterial stenosis is seen. CT/CT angio neck 1. Normal CT angiogram of the neck. No evidence of significant carotid stenosis. 2. Patent bilateral vertebral arteries with left-sided dominance. Assessment & Plan Assessment & Plan (1) Migraine without aura: Code(s): G43.009 - Migraine without aura, not intractable, without status migrainosus Category: Medical Qualifiers: Status migrainosus presence: without status migrainosus Intractability: not intractable Qualified Code(s): G43.009 - Migraine without aura, not intractable, without status migrainosus (2) Migraine with aura: Code(s): G43.109 - Migraine with aura, not intractable, without status migrainosus Category: Medical Qualifiers: Status migrainosus presence: without status migrainosus Intractability: not intractable Qualified Code(s): G43.109 - Migraine with aura, not intractable, without status migrainosus (3) Cerebellar stroke: Comment: Right Code(s): I63.9 - Cerebral infarction, unspecified Category: Medical (4) Low ferritin level: Code(s): R79.0 - Abnormal level of blood mineral Category: Medical (5) Restless leg syndrome: Code(s): G25.81 - Restless legs syndrome Category: Medical Plan For history of cerebellar infarcts seen on brain MRI s/p PFO closure: Continue aspirin 81 mg q.h.s. Continue propranolol ER 80 mg daily. For orthostatic dizziness: Improved. Continue to stand slowly. take at least 64 oz of fluid per day, with 16- 24 oz of an electrolyte replacement beverage, such as Gatorade or liquid IV. Follow-up with cardiology as scheduled. For RLS in arms and legs with numbness/tingling in BLE toes, and muscle cramps: RE-check labs Resume Pregabail at 75mg 3 x's per day- previous dose was 150mg TID Will request hematology consult for IV iron infusion tx Does not tolerate oral iron tx's Previous trials: Gabapentin ineffective For overall headache management: Optimize good self-care, including but not limited to maintaining a healthy diet, adequate fluid intake, adequate sleep, and engaging in regular physical activity. For headache triggers: Track headaches, especially after any treatment regimen changes. Migraine [employer] is one of many headache tracking apps. For acute headache treatment: It is important to take acute medications at the first sign of headache. Continue Nurtec ODT 75 mg q.d. p.r.n.- try taking at onset of mild migraine. Hold Fioricet to allow for adequate Nurtec trial. Previous acute migraine medication trials: Rizatriptan w/ Ibuprofen- not always effective and makes her tiredness Acute migraine medication contraindications: All triptans due to history of cerebellar infarct For headache prevention medication: Continue propranolol ER 80 mg q.d.- used for PVCs. Continue Ajovy 225 mg subcu q.month Previous migraine prevention medication trials: Amitriptyline- ineffective and caused GI upset. Gabapentin and Duloxetine- ineffective for JO or fibromyalgia- used for fibromyalgia. Migraine prevention medication contraindications: None at this time Pt to follow-up in 6 months or sooner prn. Orders: Orders Comprehensive [place]. Panel Fast Today D64.9 - Anemia, unspecified, E55.9 - Vitamin D deficiency, unspecified, R25.2 - Cramp and spasm Erythrocyte Sedimentation Rate Today D64.9 - Anemia, unspecified, E55.9 - Vitamin D deficiency, unspecified, R25.2 - Cramp and spasm Magnesium Today D64.9 - Anemia, unspecified, E55.9 - Vitamin D deficiency, unspecified, R25.2 - Cramp and spasm IRON PROFILE Today D64.9 - Anemia, unspecified, E55.9 - Vitamin D deficiency, unspecified, R25.2 - Cramp and spasm Vitamin B12 and Folate Today D64.9 - Anemia, unspecified, E55.9 - Vitamin D deficiency, unspecified, R25.2 - Cramp and spasm Complete Blood Count Auto Diff Today D64.9 - Anemia, unspecified, E55.9 - Vitamin D deficiency, unspecified, R25.2 - Cramp and spasm Ferritin Today D64.9 - Anemia, unspecified, E55.9 - Vitamin D deficiency, unspecified, R25.2 - Cramp and spasm C Reactive Protein Today D64.9 - Anemia, unspecified, E55.9 - Vitamin D deficiency, unspecified, R25.2 - Cramp and spasm Vitamin D 25-OH (D2 and D3) 3 Months D64.9 - Anemia, unspecified, E55.9 - Vitamin D deficiency, unspecified, R25.2 - Cramp and spasm Referrals Hematology & Oncology Referral G25.81 - Restless legs syndrome, R79.0 - Abnormal level of blood mineral Medications: New pregabalin 75 mg PO TID 90 caps 1RF 30 days Refilled rimegepant (Nurtec ODT) 75 mg PO ONCE PRN 16 tabs 6RF migraine headache 30 days MDD 1 tab Coding Level of Care Code Est Pt Level 4 (19147) Complex visit Add On G2211 Diagnoses Migraine without aura and without status migrainosus, not intractable G43.009 Status migrainosus presence: without status migrainosus Intractability: not intractable Migraine with aura and without status migrainosus, not intractable G43.109 Status migrainosus presence: without status migrainosus Intractability: not intractable Cerebellar stroke I63.9 Low ferritin level R79.0 Restless leg syndrome G25.81
== END 2025-02-10 10:13 | disposition home or self-care (01) ==
LOC: HO.HSMS 08:59
PROVIDERS: PCP Internal Medicine; Visit Provider Nurse Practitioner Family
DX: G43.009 Migraine without aura, not intractable, without status migrainosus (principal); G43.109 Migraine with aura, not intractable, without status migrainosus; R79.0 Abnormal level of blood mineral; I69.398 Other sequelae of cerebral infarction; G25.81 Restless legs syndrome
CPT/HCPCS: 99214

== ENCOUNTER 2025-02-10 08:58 | Outpatient (REF) | payer BC, SELFPAY ==
[2025-02-10 13:40] LABS: MANUAL DIFF FLAG NO
[2025-02-10 14:01] LABS: Hematocrit 42.4 % (37.0-47.0); Hemoglobin 14.3 g/dl (12.0-16.0); Imm Gran Abs Auto 0.02 X10*3/uL (0.00-0.03); Imm Gran Pct Auto 0.3 % (0.0-0.4); Lymphocytes Absolute Auto 2.2 X10*3/uL (1.2-4.9); Mean Corpuscular HGB Conc 33.7 g/dl (31.0-35.0); Mean Corpuscular Hemoglobin 29.9 pg (27.0-33.0); Mean Corpuscular Volume 88.7 fL (80.0-98.0); NRBC Abs Auto 0.000 X10*3/uL (0.0-0.012); NRBC Pct Auto 0.0 /100WBC (0.0-0.2); Platelet Count 276 X10*3/uL (160-400); Red Blood Count 4.78 X10*6/uL (4.20-5.50); White Blood Count 6.4 X10*3/uL (4.8-10.8)
[2025-02-10 14:36] LABS: Erythrocyte Sedimentation Rate 3 MM/HR (0-20)
[2025-02-10 14:42] LABS: Alanine Aminotransferase 14 U/L (0-31); Albumin Level 4.5 g/dL (3.5-5.0); Alkaline Phosphatase 62 U/L (39-117); Anion Gap 9 (12-20); Aspartate Amino Transferase 20 U/L (5-31); Blood Urea Nitrogen 13 mg/dL (9-16); Calcium 9.3 mg/dL (8.4-10.2); Carbon Dioxide 29 mmol/L (22-29); Chloride 108 mmol/L (96-108); Estimated Glomerular Filt Rate > 60; Ferritin 49 ng/mL (10-250); Iron 80 mcg/dL (30-160); Magnesium 2.3 mg/dL (1.6-2.6); Percent Iron Saturation 29 % (15-50); Potassium 4.0 mmol/L (3.3-5.1); Sodium 142 mmol/L (135-145); Total Iron Binding Capacity 279 mcg/dL (228-428); Total Protein 7.3 g/dL (6.5-8.0); Unsaturated Iron Binding 199 ug/dL
[2025-02-10 15:17] LABS: Folate 11.2 ng/mL (> or = 4.0); Vitamin B12 320 pg/mL (200-900)
== END 2025-02-10 08:59 | disposition home or self-care (01) ==
LOC: HO.HKASLDS 08:58
PROVIDERS: PCP Internal Medicine; Visit Provider Nurse Practitioner Family
DX: G43.109 Migraine with aura, not intractable, without status migrainosus (principal); I63.9 Cerebral infarction, unspecified; R79.0 Abnormal level of blood mineral; G25.81 Restless legs syndrome; D64.9 Anemia, unspecified; E55.9 Vitamin D deficiency, unspecified; Z79.82 Long term (current) use of aspirin; Z79.899 Other long term (current) drug therapy
CPT/HCPCS: 36415; 80053; 82607; 82728; 82746; 83540; 83735; 85025; 85652; 86140